=== PATIENT | female | born 1975 | race Caucasian/White ===

== ENCOUNTER → 2018-05-11 | Outpatient (CLI) | payer BC ==
[~2018-05-11] MED LIST: ASCA500 PO; CYAN500T PO; FOLI800T PO; LEVO25TA30 PO; LISI-1116 PO; MoRPHine SULFATE 2 MG/ML CARP ONE; OMEP20CA9 PO; OXYC-57 PO; POLY IRON PO; SINCALIDE INJ 1.5 MCG in SODIUM CHLORIDE 0.9% 100ML 100 ML IV ONE
--- NOTE | 2018-05-11 15:04 | DIAGNOSTIC IMAGING REPORT ---
HEPATOBILIARY HIDA IMAGING CLINICAL HISTORY: 42 years-old Female presenting with RUQ PAIN. TECHNIQUE: Immediately following the intravenous administration of 5.33 mCi Tc-99m Choletec, dynamic anterior abdominal imaging was performed. COMPARISON: None. FINDINGS: Uniform hepatic tracer accumulation is shown. Prompt intrahepatic biliary excretion is seen. Radiotracer rapidly transits into small bowel, consistent with the absence of a common bile duct obstruction. However, the gallbladder was not visualized after 60 minutes, therefore, morphine was administered. After 30 additional minutes of imaging, the gallbladder was visualized. As morphine was administered, the gallbladder ejection fraction could not be obtained. IMPRESSION: 1. Given the absence of visualization of the gallbladder after 60 minutes, findings suggest chronic cholecystitis. 2. No evidence for cystic duct obstruction. 3. Given the administration of morphine, gallbladder ejection fraction could not be obtained. Electronically signed by: Kevan Merchant M.D. 05/11/2018 3:02 PM Dictated Date/Time: 05/11/2018 2:58 PM
== END | disposition home or self-care (01) ==
LOC: C.NUCL 12:24
PROVIDERS: ATTEND Physician Assistant
DX: R10.11 Right upper quadrant pain (principal)

== ENCOUNTER 2023-09-28 05:27 | Observation (INO) ==
--- OUTSIDE RECORDS SUMMARY | 2023-09-28 05:34 | External Medical Summary | Summary of Care ---
Author Name Unknown Organization [facility] Address [address] [facility] [place] [address] Phone [phone] Care Team Providers Care Public Health Analyst Name Role Phone Paulina Ellis Primary Care Provider [phone] Reason for Visit * Reason Comments Outpatient Testing Encounter Details Date Type Department Care Team (Late st Contact Info) Description 09/07/2023 10:00 AM EST Laboratory Laboratory, [place] [address] [place] [address] [facility] [address] [place] [address] CKD (chronic kidney disease), stage II; Hypothyroidism, unspecified type Allergies Active Allergy Reactions Criticality Noted Date Comments Avocado 08/04/2012 Stomach cramps Sulfamethoxazole-Trimethopri m 07/06/2019 Really affected renal function last time she took it Mushroom Extract Complex 08/04/2012 Any mushroom: Stomach cramps Onion 08/04/2012 Stomach cramps when onions raw Tetracycline 09/18/2000 Stomach cramps documented as of this encounter (statuses as of 09/10/2023) Medications Medication Sig Dispensed Refills Start Date End Date Status SUCRALFATE 1 G PO TABS One pill as a slurry by mouth 30 minutes before meals and at bedtime 60 Tab 1 10/09/2014 Active Levocetirizine Dihydrochloride 5 MG Oral TabletIndications:PND (post-nasal drip) Take 1 Tab by mouth every evening. 30 Tab 0 11/15/2020 Active Additional Information Patient not taking.Reported on 09/10/2023 B-12 1000 MCG Oral Tablet Take one daily 0 08/01/2021 Active Additional Information Patient not taking.Reported on 02/10/2023 Ondansetron HCl 4 MG Oral TabletIndications:Str ess Take by mouth 1 Tablet every 6 hours as needed for Nausea. 30 Tablet 0 11/19/2021 Active Azelastine HCl 0.1 % Nasal SolutionIndications:D eviated septum Administer into nostril 1 Rangely in the morning AND 1 Rangely before bedtime. 30 mL 12 11/19/2021 Active Saccharomyces boulardii 250 MG Oral Capsule (Florastor)Indication s:Colitis Take by mouth 1 Capsule in the morning AND 1 Capsule before bedtime. 60 Capsule 0 12/02/2021 Active Additional Information Patient not taking.Reported on 02/10/2023 Scopolamine 1 MG/3DAYS Transdermal Patch 72 Hour (Transderm-Scop (1.5 MG))Indications:Sea sickness, initial encounter Place topically on the skin 1 Patch every 3 days . 4 hours before event. May replace every 3 days. . 4 Patch 1 02/17/2022 Active Additional Information Patient not taking.Reported on 02/10/2023 ProAir RespiClick 108 (90 Base) MCG/ACT Inhalation Aerosol Powder Breath Activated (Albuterol Sulfate)Indications:B ronchitis, complicated Inhale by mouth 2 Puffs every 4 hours as needed for Cough, Shortness of Breath or Wheezing. 3 Each 4 03/24/2022 Active Advair Diskus 250-50 MCG/ACT Inhalation Aerosol Powder Breath Activated (Fluticasone-Salmeter ol) USE 1 INHALATION EVERY 12 HOURS 60 Each 3 03/27/2022 Active Fluticasone Propionate 50 MCG/ACT Nasal Suspension (Flonase) Administer 2 Sprays into each nostril in the morning. 16 g 1 12/30/2022 Active Cetirizine HCl 10 MG Oral Tablet (ZyrTEC) Take 1 Tablet by mouth in the morning. 90 Tablet 3 12/30/2022 Active Lisinopril 2.5 MG Oral Tablet (Prinivil)Indications :ANCA-associated vasculitis (HCC) TAKE 1 TABLET DAILY 90 Tablet 3 02/16/2023 Active Levothyroxine Sodium 50 MCG Oral Tablet (Levoxyl)Indications: Hypothyroidism TAKE 1 TABLET DAILY AT LEAST 30 MINUTES BEFORE BREAKFAST AND OTHER MEDICATIONS 90 Tablet 1 04/01/2023 Active Sertraline HCl 100 MG Oral Tablet (Zoloft)Indications:Dejan wu depressive disorder, recurrent episode, mild (HCC) TAKE ONE AND ONE-HALF TABLETS DAILY WITH 25 MG FOR TOTAL OF 175 MG DAILY 135 Tablet 3 05/18/2023 Active Sertraline HCl 25 MG Oral Tablet (Zoloft)Indications:M ajor depressive disorder, recurrent episode, mild (HCC) TAKE 1 TABLET DAILY WITH 150 MG FOR TOTAL OF 175 MG 90 Tablet 3 05/18/2023 Active documented as of this encounter (statuses as of 09/10/2023) Active Problems Problem Noted Date Diagnosed Date Seasonal allergies 12/30/2022 JOVAN (obstructive sleep apnea) 04/28/2019 RLS (restless legs syndrome) 11/11/2018 Abnormal biliary HIDA scan 05/28/2018 Mild persistent asthma without complication 09/28 Globus sensation 10/09/2014 Malaise and fatigue 10/09/2014 Hypothyroidism 10/13/2013 Hepatic cyst 07/30/2012 CKD (chronic kidney disease), stage II 2 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 Major depressive disorder, recurrent episode, mi ld 09/15/2011 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 Dyspnea and respiratory abnormality 01/14/2010 Overview: ICD-10 update of inactive term Deviated nasal septum 01/14/2010 Hypertrophy of nasal turbinates 01/14/2010 Eosinophilic esophagitis 01/14/2010 documented as of this encounter (statuses as of 09/10/2023) Resolved Problems Problem Noted Date Diagnosed Date Resolved Date Otalgia 01/20/2017 03/18/2017 Sinus congestion 01/20/2017 03/18/2017 Cough 10/13/2016 03/18/2017 Mixed rhinitis 10/13/2016 03/18/2017 Chronic rhinitis 10/09/2014 10/13/2016 UTI (urinary tract infection) 06/04/2012 03/18/2017 Anemia of chronic renal failure 12/24/2011 04/17/2015 Dysfunction of eustachian tube 01/14/2010 03/18/2017 Hypertrophy of adenoids 01/14/201002/27 Other chronic sinusitis 01/14/201002/27 Allergic rhinitis 01/14/2010 03/18/2017 documented as of this encounter (statuses as of 09/10/2023) Immunizations Name Administration Dates Next Due COVID-19 mRNA, LNP-s, No Pre serve, 2-Dose Series (Pfizer) 11/03/2020 PPD 06/11/2015,10/08/2011 Pneumococcal Conjugate Vacci ne, 20-valent ([id number]) 06/25/2023 Pneumococcal Polysaccharide PPV23 (Pneumovax) 11/02/2019 Seasonal Influenza, PF, 6 M & above, IM , (FluLaval or Fluzone) 06/25/2023,07/10/2020,06/04/2019,07/30,08/03/2017 Seasonal Influenza, Quadriva lent, No Preserve, IM 06/17/2016 06/17/2017 Seasonal Influenza, Split, I IV3, With Preserve, Inj 06/11/2015,09/15/2012 TDAP (age 10 and older)(Boostrix) 01/25/2014 documented as of this encounter Social History Tobacco Use Types Packs/Day Years Used Date Smoking Tobacco: Never Smokeless Tobacco: Never Comments:no passive smoke Alcohol Use Standard Drinks/Week Comments Yes 0 (1 standard drink = 0.6 oz pur e alcohol) rare PHQ-2 Answer Date Recorded PHQ Adult Total Score 2 11/19/2021 Hunger Vital Sign Answer Date Recorded Worried About Running Out of Food in the Last Ye ar Never true 06/04/2019 Ran Out of Food in the Last Year Never true 06/04/2019 Sex and Gender Information Value Date Recorded Sex Assigned at Female 10/25/2019 10:33 AM EST Gender Identity Female 10/25/2019 10:33 AM EST Sexual Orientation Straight 10/25/2019 10 :33 AM EST Job Start Date Occupation Industry Not on file Not on file Not on file documented as of this encounter Miscellaneous Notes * Result Encounter Note - Hussein Crowder MD - 09/08/2023 9:01 AM EST GFR slightly lower than last time again. Would need to do more detailed tests for eval given prirorh/o ANCA vasculitis. Renal panel, CBC, UA, prot/creat, ANCA panel, c3 and c4. Do in about 3 weeks. documented in this encounter Plan of Treatment Upcoming Encounters Date Type Department Care Team (Late st Contact Info) Description 12/10/2023 3:40 PM EDT Office Visit [facility] [address] [place] [facility] [place] [id number] Lowell Christine MD [address] [place] [address] 02/17/2024 2:40 PM EDT Office Visit Nephrology, [facility] [address] [facility] [place] [address] Hussein Crowder MD [address] [place] [address] Pending Results Name Type Priority Associated Diagnoses Date /Time TSH WITH FREE T4 IF INDICATED Lab Routine Hypothyroidism, unspecified type 09/07/2023 10:03 AM EST Scheduled Procedures Name Priority Associated Diagnoses Date/Ti me COLONOSCOPY FLEXIBLE PROXIMA L DIAGNOSTIC Recall History of colonic polyps Health Maintenance Due Date Last Done Comments Hepatitis B (1 of 3 - 3-dose series) 1975 HIV Screening 1990 Hepatitis C Screening 1993 HPV/Co-Test 2005 Depression Screening 11/19/2022 11/19/2021 COVID-19 Vaccine ( season) 2023 08/28/2021, 11/24/2020, 11/03/2020 DTaP,Tdap,and Td Vaccines (2 - Td or Tdap) 01/26/2024 01/25/2014 TSH 02/10/2024 02/09/2023, 010 12/2022, 05/27/2021, Additional history exists Mammogram 02/12/2024 02/11/2023, 10/30, 04/05/2020, Additional history exists Cervical Cancer Screening 02/17/2025 Pap Smear 02/17/2025 02/17/2022, 08/0 04/2018, 05/05/2018, Additional history exists Diabetes Screening 09/07/2026 09/07/2023, 1 10/19/2022, 02/09/2023, Additional history exists COLONOSCOPY-EVERY 5 YRS AGES 18-100 12/24/2026 12/24/2021, 12/24/2021 Lipid Panel 02/10/2028 02/09/2023, 01/27, 10/06/2012, Additional history exists Colonoscopy Discontinued 12/24/2021, 12/24/2021 Colorectal Cancer Screening Discontinued Influenza Vaccine (FLU shot) Completed 06/25/2023, 07/10/2020, 06/04/2019, Additional history exists Pneumococcal Vaccine: Pediatrics (0 to 5 Years) and At-Risk Patients (6 to 64 Years) Completed 06/25/2023, 11/02/2019 Cologuard Discontinued Fecal Occult Blood Test Discontinued GARDASIL-HPV IMMUNIZATION SERIES Aged Out No longer eligible based on patient's age to complete this topic MENINGOCOCCAL (MENACTRA/MENVEO) Aged Out No longer eligible based on patient's age to complete this topic Sigmoidoscopy Discontinued documented as of this encounter Medical Devices Not on filedocumented as of this encounter Procedures Procedure Name Priority Date/Time Associated Diagnosis Comments RENAL FUNCTION PANEL Routine 09/07/2023 10:03 AM EST CKD (chronic kidney disease), stage II URINALYSIS WITH MICROSCOPIC EXAM Routine 09/07/2023 10:03 AM EST CKD (chronic kidney disease), stage II CBC Routine 09/07/2023 10:03 AM EST CKD (chronic kidney disease), stage II documented in this encounter Results * (ABNORMAL) URINALYSIS WITH MICROSCOPIC EXAM (09/07/2023 10:03 AM EST) Color, Urine Colorless Colorless, Light Yellow, Yellow, Dark Yellow 09/07/2023 5:15 PM EST [facility] Clarity, Urine Clear Clear 09/07/2023 5:15 PM EST [facility] Glucose, Urine Negative Negative mg/dL 09/07/2023 5:15 PM EST [facility] Bilirubin, Urine Negative Negative 09/07/2023 5:15 PM EST [facility] Ketone, Urine Negative Negative mg/dL 09/07/2023 5:15 PM EST [facility] Specific [place], Urine 1.014 1.003 - 1.030 09/07/2023 5:15 PM EST [facility] Blood, Urine Large(A) Negative 09/07/2023 5:15 PM EST [facility] pH, Urine 7.5 5.0 - 7.5 Units 09/07/2023 5:15 PM EST [facility] Protein, Urine 30(A) Negative mg/dL 09/07/2023 5:15 PM EST [facility] Urobilinogen, Urine Normal Normal mg/dL 09/07/2023 5:15 PM EST [facility] Nitrite, Urine Negative Negative 09/07/2023 5:15 PM EST [facility] Esterase, Urine Negative Negative 09/07/2023 5:15 PM EST [facility] RBC, Urine 30-49(A) 0 - 2 /HPF 09/07/2023 5:15 PM EST [facility] WBC, Urine 3-5(A) 0 - 2 /HPF 09/07/2023 5:15 PM EST [facility] Bacteria, Urine 0-25 0 - 25 /HPF 09/07/2023 5:15 PM EST LAB[facility]ATORY [facility] Urine Non-blood Collection / Unknown 09/07/2023 10:03 AM EST 09/07/2023 10:03 AM EST Hussein Crowder MD LAB URINE ORDERABLES Performing Organization Address City/State/[facility] Co de Phone Number LABORATORY [facility] [address] [place] [address] * (ABNORMAL) RENAL FUNCTION PANEL (09/07/2023 10:03 AM EST) BUN 19 6 - 20 mg/dL 09/07/2023 4:24 PM EST [facility] Creatinine 1.4(H) 0.5 - 1.0 mg/dL 09/07/2023 4:24 PM EST [facility] Estimated Glomerular Filtration Rate 48(L) >=60 mL/min 09/07/2023 4:24 PM EST [facility] Comment:eGFR is calculated b ased on the CKD-EPI 2020 equation Sodium 141 135 - 146 mmol/L 09/07/2023 4:24 PM EST [facility] Potassium 4.4 3.5 - 5.1 mmol/L 09/07/2023 4:24 PM EST [facility] Chloride 103 98 - 107 mmol/L 09/07/2023 4:24 PM EST [facility] CO2 29 22 - 32 mmol/L 09/07/2023 4:24 PM EST [facility] Anion Gap 9 7 - 15 mmol/L 09/07/2023 4:24 PM EST [facility] Glucose 98 70 - 120 mg/dL 09/07/2023 4:24 PM EST [facility] Calcium 9.3 8.4 - 10.2 mg/dL 09/07/2023 4:24 PM EST [facility] Albumin 4.2 3.8 - 5.0 g/dL 09/07/2023 4:24 PM EST [facility] Phosphorus 3.6 2.5 - 4.8 mg/dL 09/07/2023 4:24 PM EST [facility] Blood Venous blood specimen / Unknown Venipuncture / Unknown 09/07/2023 10:03 AM EST 09/07/2023 10:03 AM EST Hussein Crowder MD LAB BLOOD ORDERABLES [facility] [address] [place] [address] * CBC (09/07/2023 10:03 AM EST) WBC 7.88 4.00 - 10.80 K/uL 09/07/2023 4:04 PM EST [facility] RBC 4.45 3.85 - 5.15 M/uL 09/07/2023 4:04 PM EST [facility] HGB 12.7 12.0 - 15.3 g/dL 09/07/2023 4:04 PM EST [facility] HCT 39.5 36.0 - 45.2 % 09/07/2023 4:04 PM EST [facility] MCV 88.8 81.5 - 97.5 fL 09/07/2023 4:04 PM EST [facility] MCH 28.5 27.0 - 34.0 pg 09/07/2023 4:04 PM EST [facility] MCHC 32.2 32.0 - 36.0 g/dL 09/07/2023 4:04 PM EST [facility] RDW 13.2 11.5 - 15.5 % 09/07/2023 4:04 PM EST [facility] PLT 287 140 - 400 K/uL 09/07/2023 4:04 PM EST [facility] MPV 11.2 6.6 - 11.1 fL 09/07/2023 4:04 PM EST [facility] nRBCs 0 <=0 /100 WBCs 09/07/2023 4:04 PM EST [facility] Blood Venous blood specimen / Unknown Venipuncture / Unknown 09/07/2023 10:03 AM EST 09/07/2023 10:03 AM EST Hussein Crowder MD LAB BLOOD ORDERABLES Performing Organization Address City/State/[facility] Co de Phone Number [facility] [address] [place] [address] documented in this encounter Visit Diagnoses Diagnosis CKD (chronic kidney disease), stage II Chronic kidney disease, Stage II (mild) Hypothyroidism, unspecified type documented in this encounter Advance Directives Latest Code Status on File Code Status Date Activated Date Inactivated Comments Full Code 10/27/2011 6:02 PM 10/31/2011 5:17 PM This o rder reflects the patients wishes and were consensually agreed upon. Question Answer Comments Discussion of Advance Directives occurred with: Patient Does the patient have a Living Will? No Does the patient have Health Care Power of Incising Machine Operator? No Care Teams Public Health Analyst Relationship Specialty Start Date End Date Paulina Ellis DO [address] [place] [address] PCP - General Family Medicine 11/17/18 documented as of this encounter
--- OUTSIDE RECORDS SUMMARY | 2023-09-28 05:34 | External Medical Summary ---
Author Name Unknown Address Unknown Organization [id number]:[facility] [place] [address] [place] [address] Laboratory Report Ordering Provider Test Date Status SEVEN YBARRA 09/07/2023 10:03:47 Final Observation Date Value Abnormality Reference (Units ) Status TSH 09/07/2023 10:03:47 10.70 Above high normal 0. 27-4.20 (uIU/mL) Final Performing Location [facility] [place] [address] [place] [address]
--- OUTSIDE RECORDS SUMMARY | 2023-09-28 05:34 | External Medical Summary ---
Author Name Unknown Address Unknown Organization [id number][facility] [place] [address] [facility] [place] [address] Laboratory Report Ordering Provider Test Date Status YOLANDA BARTON 09/07/2023 10:03:47 Final Observation Date Value Abnormality Reference (Units ) Status Color of Urine by Auto 09/07/2023 10:03:47 Colorless Colorless, Light Yellow, Yellow, Dark Yellow Final Clarity, Urine 09/07/2023 10:03:47 Clear Clear Final Glucose [Mass/volume] in Urine by Automated test strip 09/07/2023 10:03:47 Negative Negative (mg/dL) Final Bilirubin.total [Presence] in Urine by Automated test strip 09/07/2023 10:03:47 Negative Negative Final Ketones [Mass/volume] in Urine by Automated test strip 09/07/2023 10:03:47 Negative Negative (mg/dL) Final Specific gravity, Urine 09/07/2023 10:03:47 1.014 1.003-1.030 Final Hemoglobin [Presence] in Urine by Automated test strip 09/07/2023 10:03:47 Large Abnormal Negative Final pH, Urine 09/07/2023 10:03:47 7.5 5.0-7.5 (Units) Final Protein [Mass/volume] in Urine by Automated test strip 09/07/2023 10:03:47 30 Abnormal Negative (mg/dL) Final Urobilinogen [Mass/volume] in Urine by Automated test strip 09/07/2023 10:03:47 Normal Normal (mg/dL) Final Nitrite [Presence] in Urine by Automated test strip 09/07/2023 10:03:47 Negative Negative Final Leukocyte esterase [Presence] in Urine by Automated test strip 09/07/2023 10:03:47 Negative Negative Final RBC, Urine 09/07/2023 10:03:47 30-49 Abnormal 0-2 (/HPF) Final WBC, Urine 09/07/2023 10:03:47 3-5 Abnormal 0-2 (/HPF) Final Bacteria [#/area] in Urine sediment by Microscopy high power field 09/07/2023 10:03:47 0-25 0-25 (/HPF) Final Performing Location [facility] [place] [facility] [address] [facility] [address]
--- OUTSIDE RECORDS SUMMARY | 2023-09-28 05:34 | External Medical Summary | Summary of Care ---
Author Name Unknown Organization [facility] Address [address] [facility] [place] [address] Phone [phone] Care Team Providers Care Surgical Scrub Technologist Name Role Phone Paulina Ellis Primary Care Provider Encounter Details Date Type Department Care Team (Late st Contact Info) Description 09/08/2023 Orders Only Nephrology, [facility] [address] [place] [address] Hussein Crowder MD [address] [place] [address] ANCA-associated vasculitis (HCC)*; CKD (chronic kidney disease), stage II Allergies Active Allergy Reactions Criticality Noted Date Comments Avocado 08/04/2012 Stomach cramps Sulfamethoxazole-Trimethopri m 07/06/2019 Really affected renal function last time she took it Mushroom Extract Complex 08/04/2012 Any mushroom: Stomach cramps Onion 08/04/2012 Stomach cramps when onions raw Tetracycline 09/18/2000 Stomach cramps documented as of this encounter (statuses as of 09/08/2023) Medications Medication Sig Dispensed Refills Start Date End Date Status SUCRALFATE 1 G PO TABS One pill as a slurry by mouth 30 minutes before meals and at bedtime 60 Tab 1 10/09/2014 Active Levocetirizine Dihydrochloride 5 MG Oral TabletIndications:PND (post-nasal drip) Take 1 Tab by mouth every evening. 30 Tab 0 11/15/2020 Active B-12 1000 MCG Oral Tablet Take one daily 0 08/01/2021 Active Additional Information Patient not taking.Reported on 02/10/2023 Ondansetron HCl 4 MG Oral TabletIndications:Str ess Take by mouth 1 Tablet every 6 hours as needed for Nausea. 30 Tablet 0 11/19/2021 Active Azelastine HCl 0.1 % Nasal SolutionIndications:D eviated septum Administer into nostril 1 Volcano in the morning AND 1 Volcano before bedtime. 30 mL 12 11/19/2021 Active [...] Sertraline HCl 100 MG Oral Tablet (Zoloft)Indications:Dejan hernandesor depressive disorder, recurrent episode, mild (HCC) TAKE ONE AND ONE-HALF TABLETS DAILY WITH 25 MG FOR TOTAL OF 175 MG DAILY 135 Tablet 3 05/18/2023 Active Sertraline HCl 25 MG Oral Tablet (Zoloft)Indications:Dejan ajor depressive disorder, recurrent episode, mild (HCC) TAKE 1 TABLET DAILY WITH 150 MG FOR TOTAL OF 175 MG 90 Tablet 3 05/18/2023 Active documented as of this encounter (statuses as of 09/08/2023) Active Problems Problem Noted Date Diagnosed Date [...] as of this encounter (statuses as of 09/08/2023) Resolved Problems Problem Noted Date Diagnosed Date [...] as of this encounter (statuses as of 09/08/2023) Immunizations Name Administration Dates Next Due COVID-19 mRNA, LNP-s, No Pre serve, 2-Dose Series (Pfizer) 11/03/2020 PPD 06/11/2015,10/08/2011 Pneumococcal Conjugate Vacci ne, 20-valent ([id number]) 06/25/2023 Pneumococcal Polysaccharide PPV23 (Pneumovax) 11/02/2019 Seasonal [...] on file documented as of this encounter Plan of Treatment Upcoming Encounters Date Type Department Care Team (Late st Contact Info) Description 02/17/2024 2:40 PM EDT Office Visit [facility] [address] [place] [address] Hussein Crowder MD [address] [place] [address] Scheduled Orders Name Type Priority Associated Diagnoses Orde r Schedule RENAL FUNCTION PANEL Lab Routine ANCA-associated vasculitis (HCC) CKD (chronic kidney disease), stage II Expected: 09/08/2023 (Approximate), Expires: 09/08/2024 CBC Lab Routine ANCA-associated vasculitis (HCC) CKD (chronic kidney disease), stage II Expected: 09/08/2023 (Approximate), Expires: 09/08/2024 URINALYSIS WITH MICROSCOPIC EXAM Lab Routine ANCA-associated vasculitis (HCC) CKD (chronic kidney disease), stage II Expected: 09/08/2023 (Approximate), Expires: 09/08/2024 PROTEIN/ CREATININE RATIO, URINE Lab Routine ANCA-associated vasculitis (HCC) CKD (chronic kidney disease), stage II Expected: 09/08/2023 (Approximate), Expires: 09/08/2024 ANCA REFLEX PANEL Lab Routine ANCA-associated vasculitis (HCC) CKD (chronic kidney disease), stage II Expected: 09/08/2023 (Approximate), Expires: 09/08/2024 COMPLEMENT C3 Lab Routine ANCA-associated vasculitis (HCC) CKD (chronic kidney disease), stage II Expected: 09/08/2023 (Approximate), Expires: 09/08/2024 COMPLEMENT C4 Lab Routine ANCA-associated vasculitis (HCC) CKD (chronic kidney disease), stage II Expected: 09/08/2023 (Approximate), Expires: 09/08/2024 Scheduled Procedures Name Priority Associated Diagnoses Date/Ti [...] or Tdap) 01/26/2024 01/25/2014 TSH 02/10/2024 02/09/2023, 01/0 12/2022, 05/27/2021, Additional history exists Mammogram 02/12/2024 02/11/2023, 10/30, 04/05/2020, Additional history exists Cervical Cancer Screening 02/17/2025 Pap Smear 02/17/2025 02/17/2022, 04/2018, 05/05/2018, Additional history exists Diabetes Screening [...] Not on filedocumented as of this encounter Visit Diagnoses Diagnosis ANCA-associated vasculitis (HCC)- Primary Other specified disorders of arteries and arterioles CKD (chronic kidney disease), stage II Chronic kidney disease, Stage II (mild) documented in this encounter Advance Directives Latest [...] the patient have Health Care Power of Student Development Coordinator? No Care Teams Surgical Scrub Technologist Relationship Specialty Start Date End Date Paulina Ellis DO [address] [place] [address] PCP - General Family Medicine 11/17/18 documented as of this encounter
--- OUTSIDE RECORDS SUMMARY | 2023-09-28 05:34 | External Medical Summary ---
Author Name Unknown Address Unknown Organization [id number]:[facility]ORY [facility] [place] [address] [address] Laboratory Report Ordering Provider Test Date Status SEVEN YBARRA 09/07/2023 10:03:47 Final Observation Date Value Abnormality Reference (Units ) Status T4, Free 09/07/2023 10:03:47 0.9 0.9-1.7 (n g/dL) Final Performing Location [facility] - [address] [place] [address]
--- OUTSIDE RECORDS SUMMARY | 2023-09-28 05:34 | External Medical Summary ---
Author Name Unknown Address Unknown Organization [id number]:LABORATORY [facility] [place] - [address] [place] [address] Laboratory Report Ordering Provider Test Date Status YOLANDA BARTON 08/19/2023 08:51:38 Final Observation Date Value Abnormality Reference (Units ) Status BUN 08/19/2023 08:51:38 18 6-20 (mg/dL) Final Creatinine 08/19/2023 08:51:38 1.3 Above high normal 0.5-1.0 (mg/dL) Final Glomerular filtration rate/1.73 sq M.predicted [Volume Rate/Area] in Serum, Plasma or Blood by Creatinine-based formula (CKD-EPI) 08/19/2023 08:51:38 52 Below low normal >=60 (mL/min) Final eGFR is calculated based on the CKD-EPI 2020 equation SODIUM 08/19/2023 08:51:38 139 135-146 (m mol/L) Final Potassium 08/19/2023 08:51:38 4.2 3.5-5.1 (m mol/L) Final Cl 08/19/2023 08:51:38 101 98-107 (mm ol/L) Final CO2 08/19/2023 08:51:38 30 22-32 (mmo l/L) Final Anion gap 08/19/2023 08:51:38 8 7-15 (mmol /L) Final Glucose 08/19/2023 08:51:38 100 70-120 (mg /dL) Final Calcium 08/19/2023 08:51:38 9.2 8.4-10.2 ( mg/dL) Final Performing Location LABORATORY [facility] [place] - [address] [place] [address]
--- OUTSIDE RECORDS SUMMARY | 2023-09-28 05:34 | External Medical Summary ---
Author Name Unknown Address Unknown Organization [id number]:[facility] [place] [address] [place] [address] Laboratory Report Ordering Provider Test Date Status YOLANDA BARTON 08/19/2023 08:51:38 Final Observation Date Value Abnormality Reference (Units ) Status Color of Urine by Auto 08/19/2023 08:51:38 Colorless Colorless, Light Yellow, Yellow, Dark Yellow Final Clarity, Urine 08/19/2023 08:51:38 Clear Clear Final Glucose [Mass/volume] in Urine by Automated test strip 08/19/2023 08:51:38 Negative Negative (mg/dL) Final Bilirubin.total [Presence] in Urine by Automated test strip 08/19/2023 08:51:38 Negative Negative Final Ketones [Mass/volume] in Urine by Automated test strip 08/19/2023 08:51:38 Negative Negative (mg/dL) Final Specific gravity, Urine 08/19/2023 08:51:38 1.014 1.003-1.030 Final Hemoglobin [Presence] in Urine by Automated test strip 08/19/2023 08:51:38 Large Abnormal Negative Final pH, Urine 08/19/2023 08:51:38 6.5 5.0-7.5 (Units) Final Protein [Mass/volume] in Urine by Automated test strip 08/19/2023 08:51:38 30 Abnormal Negative (mg/dL) Final Urobilinogen [Mass/volume] in Urine by Automated test strip 08/19/2023 08:51:38 Normal Normal (mg/dL) Final Nitrite [Presence] in Urine by Automated test strip 08/19/2023 08:51:38 Negative Negative Final Leukocyte esterase [Presence] in Urine by Automated test strip 08/19/2023 08:51:38 Trace Abnormal Negative Final RBC, Urine 08/19/2023 08:51:38 50+ Abnormal 0-2 (/HPF) Final WBC, Urine 08/19/2023 08:51:38 6-9 Abnormal 0-2 (/HPF) Final Bacteria [#/area] in Urine sediment by Microscopy high power field 08/19/2023 08:51:38 26-50 Abnormal 0-25 (/HPF) Final Performing Location [facility] [place] [address] [facility] [address]
--- OUTSIDE RECORDS SUMMARY | 2023-09-28 05:34 | External Medical Summary ---
Author Name Unknown Address Unknown Organization K01:LABORATORY [facility] [place] - Formerly named [facility] [address] [facility] [address] Laboratory Report Ordering Provider Test Date Status YOLANDA BARTON 09/07/2023 10:03:47 Final Observation Date Value Abnormality Reference (Units ) Status WBC, Total 09/07/2023 10:03:47 7.88 4.00-10.80 (K/uL) Final RBC 09/07/2023 10:03:47 4.45 3.85-5.15 (M/uL) Final Hemoglobin 09/07/2023 10:03:47 12.7 12.0-15.3 (g/dL) Final HCT 09/07/2023 10:03:47 39.5 36.0-45.2 (%) Final MCV 09/07/2023 10:03:47 88.8 81.5-97.5 (fL) Final MCH 09/07/2023 10:03:47 28.5 27.0-34.0 (pg) Final MCHC 09/07/2023 10:03:47 32.2 32.0-36.0 (g/dL) Final RDW 09/07/2023 10:03:47 13.2 11.5-15.5 (%) Final Platelets 09/07/2023 10:03:47 287 140-400 (K/uL) Final MPV 09/07/2023 10:03:47 11.2 6.6-11.1 (fL) Final Nucleated erythrocytes/100 leukocytes [Ratio] in Blood by Automated count 09/07/2023 10:03:47 0 <=0 (/100 WBCs) Final Performing Location LABORATORY [facility] [place] - [address] [place] [address]
--- OUTSIDE RECORDS SUMMARY | 2023-09-28 05:34 | External Medical Summary | Summary of Care ---
Author Name Unknown Organization [facility] Address [address] [facility] [place] [address] Phone [phone] Care Team Providers Care Diversified Crops I Farmworker Name Role Phone Paulina Ellis Primary Care Provider [phone] Reason for Visit * Reason Onset Date Comments Test Results 09/10/2023 Encounter Details Date Type Department Care Team (Late st Contact Info) Description 09/10/2023 Telephone [facility] [address] [place] [address] Lowell Christine MD [address] [place] [address] Test Results Allergies Active Allergy Reactions Criticality Noted Date Comments Avocado 08/04/2012 Stomach cramps Sulfamethoxazole-Trimethopri m 07/06/2019 Really affected renal function last time she took it Mushroom Extract Complex 08/04/2012 Any mushroom: Stomach cramps Onion 08/04/2012 Stomach cramps when onions raw Tetracycline 09/18/2000 Stomach cramps documented as of this encounter (statuses as of 09/14/2023) Medications Medication Sig Dispensed Refills Start Date End Date Status SUCRALFATE 1 G PO TABS One pill as a slurry by mouth 30 minutes before meals and at bedtime 60 Tab 1 10/09/2014 Active Levocetirizine Dihydrochloride 5 MG Oral TabletIndications:PN D (post-nasal drip) Take 1 Tab by mouth every evening. 30 Tab 0 11/15/2020 Active Additional Information Patient not taking.Reported on 09/10/2023 B-12 1000 MCG Oral Tablet Take one daily 0 08/01/2021 Active Additional Information Patient not taking.Reported on 02/10/2023 Ondansetron HCl 4 MG Oral TabletIndications:St ress Take by mouth 1 Tablet every 6 hours as needed for Nausea. 30 Tablet 0 11/19/2021 Active Azelastine HCl 0.1 % Nasal SolutionIndications: Deviated septum Administer into nostril 1 Lynn in the morning AND 1 Lynn before bedtime. 30 mL 12 11/19/2021 Active Saccharomyces boulardii 250 MG Oral Capsule (Florastor)Indicatio ns:Colitis Take by mouth 1 Capsule in the [...] MCG/ACT Inhalation Aerosol Powder Breath Activated (Albuterol Sulfate)Indications: Bronchitis, complicated Inhale by mouth 2 Puffs every 4 hours as needed for Cough, Shortness of Breath or Wheezing. 3 Each 4 03/24/2022 Active Advair Diskus 250-50 MCG/ACT Inhalation Aerosol Powder Breath Activated (Fluticasone-Salmete rol) USE 1 INHALATION EVERY 12 HOURS 60 Each 3 03/27/2022 Active Fluticasone Propionate 50 MCG/ACT Nasal Suspension (Flonase) Administer 2 Sprays into each nostril in the morning. 16 g 1 12/30/2022 Active Cetirizine HCl 10 MG Oral Tablet (ZyrTEC) Take 1 Tablet by mouth in the morning. 90 Tablet 3 12/30/2022 Active Lisinopril 2.5 MG Oral Tablet (Prinivil)Indication s:ANCA-associated vasculitis (HCC) TAKE 1 TABLET DAILY 90 Tablet 3 02/16/2023 Active Sertraline HCl 100 MG Oral Tablet (Zoloft)Indications: Major depressive disorder, recurrent episode, mild (HCC) TAKE ONE AND ONE-HALF TABLETS DAILY WITH 25 MG FOR TOTAL OF 175 MG DAILY 135 Tablet 3 05/18/2023 Active Sertraline HCl 25 MG Oral Tablet (Zoloft)Indications: Major depressive disorder, recurrent episode, mild (HCC) TAKE 1 TABLET DAILY WITH 150 MG FOR TOTAL OF 175 MG 90 Tablet 3 05/18/2023 Active Levothyroxine Sodium 75 MCG Oral Tablet (Levoxyl) Take 1 Tablet by mouth in the morning. (at least 30 min prior to breakfast or other meds). 90 Tablet 3 09/14/2023 Active Levothyroxine Sodium 50 MCG Oral Tablet (Levoxyl)Indications :Hypothyroidism TAKE 1 TABLET DAILY AT LEAST 30 MINUTES BEFORE BREAKFAST AND OTHER MEDICATIONS 90 Tablet 1 04/01/2023 09/10/20 23 Discontinu ed(Medicat ion/Dose Changed) Levothyroxine Sodium 75 MCG Oral Tablet (Levoxyl) Take 1 Tablet by mouth in the morning. (at least 30 min prior to breakfast or other meds). 90 Tablet 3 09/14/2023 09/14/20 23 Discontinu ed(Refill) documented as of this encounter (statuses as of 09/14/2023) Active Problems Problem Noted Date Diagnosed Date [...] as of this encounter (statuses as of 09/14/2023) Resolved Problems Problem Noted Date Diagnosed Date [...] as of this encounter (statuses as of 09/14/2023) Immunizations Name Administration Dates Next Due COVID-19 mRNA, LNP-s, No Pre serve, 2-Dose Series (Leads Direct) 11/03/2020 PPD 06/11/2015,10/08/2011 Pneumococcal Conjugate Vacci ne, 20-valent ([id number]) 06/25/2023 Pneumococcal Polysaccharide PPV23 (Pneumovax) 11/02/2019 Seasonal [...] as of this encounter Miscellaneous Notes * Telephone Encounter - Montse Olvera LPN - 09/14/2023 3:46 PM EST Patient aware and verbalized understanding Pt is requesting med to be sent to [facility]. Pended * Telephone Encounter - Lowell Christine MD - 09/14/2023 1:32 PM EST Never heard back - can notify that higher dose sent to [facility]. * Telephone Encounter - Dilia Sargent LPN - 09/11/2023 10:02 AM EST Left detailed message for patient. If she calls back please find out what pharmacy she would like new Rx sent to * Telephone Encounter - Lowell Christine MD - 09/10/2023 8:30 PM EST Please call pt to notify that her TSH returned elevated. She should increase her dose of thyroid replacement to 75 mcg daily. She can take 1 and 1/2 of the 50 mcg to use them up. What pharmacy does she want for the levothyroxine? Suggest repeat TSH after 6-8 weeks. documented in this encounter Plan of Treatment Upcoming Encounters Date Type Department Care Team (Late st Contact Info) Description 12/10/2023 3:40 PM EDT Office Visit [address] [address] Lowell Christine MD [address] [place] [address] 02/17/2024 2:40 PM EDT Office Visit Nephrology, Deniz Perez [address] [place] [address] Hussein Crowder MD [address] [facility] [place] [address] Scheduled Orders Name Type Priority Associated Diagnoses Orde r Schedule TSH WITH FREE T4 IF INDICATED Lab Routine Hypothyroidism, unspecified type Expected: 09/14/2023 (Approximate), Expires: 09/09/2024 Scheduled Procedures Name Priority Associated Diagnoses Date/Ti [...] (2 - Td or Tdap) 01/26/2024 01/25/2014 Mammogram 02/12/2024 02/11/2023, 10/30, 04/05/2020, Additional history [...] as of this encounter Visit Diagnoses Diagnosis Hypothyroidism, unspecified type- Primary documented in this encounter Advance Directives Latest [...] the patient have Health Care Power of Signalling And Communications Engineer? No Care Teams Diversified Crops I Farmworker Relationship Specialty Start Date End Date Paulina Ellis DO [address] [place] [address] PCP - General Family Medicine 11/17/18 documented as of this encounter
--- OUTSIDE RECORDS SUMMARY | 2023-09-28 05:34 | External Medical Summary | Summary of Care ---
Author Name Unknown Organization [facility] Address [address] [facility] [place] [address] Phone [phone] Care Team Providers Care Em Physician Name Role Phone Paulina Ellis DO Primary Care Provider Encounter Details Date Type Department Care Team (Late st Contact Info) Description 08/19/2023 Telephone [facility] [address] [facility] [place] [address] Paulina Ellis DO [address] [place] [address] Allergies Active Allergy Reactions Criticality Noted Date Comments Avocado 08/04/2012 Stomach cramps Sulfamethoxazole-Trimethopri m 07/06/2019 Really affected renal function last time she took it Mushroom Extract Complex 08/04/2012 Any mushroom: Stomach cramps Onion 08/04/2012 Stomach cramps when onions raw Tetracycline 09/18/2000 Stomach cramps documented as of this encounter (statuses as of 08/26/2023) Medications Medication Sig Dispensed Refills Start Date [...] SolutionIndications:D eviated septum Administer into nostril 1 [place] in the morning AND 1 [place] before bedtime. 30 mL 12 11/19/2021 Active [...] Sertraline HCl 100 MG Oral Tablet (Zoloft)Indications:Dejan ajor depressive disorder, [...] as of this encounter (statuses as of 08/26/2023) Active Problems Problem Noted Date Diagnosed Date [...] as of this encounter (statuses as of 08/26/2023) Resolved Problems Problem Noted Date Diagnosed Date [...] as of this encounter (statuses as of 08/26/2023) Immunizations Name Administration Dates Next Due COVID-19 mRNA, LNP-s, No Pre serve, 2-Dose Series (Pfizer) 11/03/2020 PPD 06/11/2015,10/08/2011 Pneumococcal Conjugate Vacci ne, 20-valent ([id number]) 06/25/2023 Pneumococcal Polysaccharide PPV23 (Pneumovax) 11/02/2019 SEASONAL INFLUENZA, PF, 6 M & Above, IM , (FLULAVAL or FLUZONE) 06/25/2023,07/10/2020,06/04/2019,07/30,08/03/2017 Seasonal Influenza, Quadriva lent, No Preserve, [...] encounter Miscellaneous Notes * Telephone Encounter - Anna Carbone CCMA - 08/21/2023 1:50 PM EST Pt states that she didn't start taking chol level yet. She states that she is going to be doing another lab nephrology she will call back in mid August to schedule * Telephone Encounter - Paulina Ellis DO - 08/21/2023 1:44 PM EST I have never seen pt, . They were high in january Did she start taking a chol pill? I would suggest a follow-up appt * Telephone Encounter - Chiquita Albarran OSA - 08/19/2023 8:39 AM EST 08/19/23 Pt stopped by the hotel front desk clerk and was inquiring about lab work for Cholesterol levels? The last lab was drawn in January of 2023. documented in this encounter Plan of Treatment Upcoming Encounters Date Type Department Care Team (Late st Contact Info) Description 02/17/2024 2:40 PM EDT Office Visit [facility] [address] [facility] [place], [place] [address] Hussein Crowder MD [address] [facility] [place], [place] [address] Scheduled Procedures Name Priority Associated Diagnoses Date/Ti [...] 04/2018, 05/05/2018, Additional history exists Diabetes Screening 08/19/2026 08/19/2023, 0 02/09/2023, 10/01/2022, Additional history exists COLONOSCOPY-EVERY 5 YRS AGES [...] Not on filedocumented as of this encounter Advance Directives Latest Code Status on File Code Status Date Activated Date Inactivated Comments Full Code 10/27/2011 6:02 PM 10/31/2011 5:17 PM This o rder reflects the patients wishes and were consensually agreed upon. Question Answer Comments Discussion of Advance Directives occurred with: Patient Does the patient have a Living Will? No Does the patient have Health Care Power of Broach Setter? No Care Teams Em Physician Relationship Specialty Start Date End Date [facility]ina Ellis [facility] [address] [facility] [place] [address] PCP - General Family Medicine 11/17/18 documented as of this encounter
--- OUTSIDE RECORDS SUMMARY | 2023-09-28 05:34 | External Medical Summary | Summary of Care ---
Author Name Unknown Organization [facility] Address [address] [facility] [place] [address] Phone [phone] Care Team Providers Care Optometrist President/Practice Owner Name Role Phone Caleb Paulina Lucas Primary Care Provider Reason for Visit * Reason Comments Outpatient Testing Encounter Details Date Type Department Care Team (Late st Contact Info) Description 08/19/2023 8:40 AM EST Laboratory Laboratory, [place] [address] [place] [address] [place], [facility] [address] [place] [address] CKD (chronic kidney disease), stage II; ANCA-associated vasculitis (HCC) Allergies Active Allergy Reactions Criticality Noted Date Comments Avocado 08/04/2012 Stomach cramps Sulfamethoxazole-Trimethopri m 07/06/2019 Really affected renal function last time she took it Mushroom Extract Complex 08/04/2012 Any mushroom: Stomach cramps Onion 08/04/2012 Stomach cramps when onions raw Tetracycline 09/18/2000 Stomach cramps documented as of this encounter (statuses as of 08/19/2023) Medications Medication Sig Dispensed Refills Start Date [...] SolutionIndications:D eviated septum Administer into nostril 1 [place] in the morning AND 1 [place] before bedtime. 30 mL 12 11/19/2021 Active [...] Active Sertraline HCl 100 MG Oral Tablet (Zoloft)Indications:M ajor depressive disorder, [...] as of this encounter (statuses as of 08/19/2023) Active Problems Problem Noted Date Diagnosed Date [...] as of this encounter (statuses as of 08/19/2023) Resolved Problems Problem Noted Date Diagnosed Date [...] as of this encounter (statuses as of 08/19/2023) Immunizations Name Administration Dates Next Due COVID-19 mRNA, LNP-s, No Pre serve, 2-Dose Series (Pfizer) 11/03/2020 PPD 06/11/2015,10/08/2011 Pneumococcal Conjugate Vacci ne, 20-valent ([id number]) 06/25/2023 Pneumococcal Polysaccharide PPV23 (Pneumovax) 11/02/2019 SEASONAL [...] PM EDT Office Visit [facility] [address] [place] [address] Hussein Crowder MD [address] [place] [address] Pending Results Name Type Priority Associated Diagnoses Date /Time BASIC METABOLIC PANEL Lab Routine CKD (chronic kidney disease), stage II ANCA-associated vasculitis (HCC) 08/19/2023 8:51 AM EST CBC Lab Routine CKD (chronic kidney disease), stage II ANCA-associated vasculitis (HCC) 08/19/2023 8:51 AM EST URINALYSIS WITH MICROSCOPIC EXAM Lab Routine CKD (chronic kidney disease), stage II ANCA-associated vasculitis (HCC) 08/19/2023 8:51 AM EST Scheduled Procedures Name Priority Associated [...] or Tdap) 01/26/2024 01/25/2014 TSH 02/10/2024 02/09/2023, 12/2022, 05/27/2021, Additional history exists Mammogram 02/12/2024 02/11/2023, 10/30, 04/05/2020, Additional history exists Cervical Cancer Screening 02/17/2025 Pap Smear 02/17/2025 02/17/2022, 04/2018, 05/05/2018, Additional history exists Diabetes Screening 02/09/2026 02/09/2023, 0 10/01/2022, 02/18/2022, Additional history exists COLONOSCOPY-EVERY 5 YRS AGES [...] as of this encounter Visit Diagnoses Diagnosis CKD (chronic kidney disease), stage II Chronic kidney disease, Stage II (mild) ANCA-associated vasculitis (HCC) Other specified disorders of arteries and arterioles documented in this encounter Advance Directives Latest [...] the patient have Health Care Power of Chief Librarian Circulation Department? No Care Teams Optometrist President/Practice Owner Relationship Specialty Start Date End Date Paulina Ellis DO [address] [place] [address] PCP - General Family Medicine 11/17/18 documented as of this encounter
--- OUTSIDE RECORDS SUMMARY | 2023-09-28 05:34 | External Medical Summary | Summary of Care ---
Author Name Unknown Organization [facility] Address [address] [facility] [place] [address] Phone [phone] Care Team Providers Care Clay Mixer Name Role Phone Caleb Paulina Lucas Primary Care Provider Reason for Visit * Reason Comments Outpatient Testing Encounter Details Date Type Department Care Team (Late st Contact Info) Description 09/07/2023 10:00 AM EST Laboratory Laboratory, [place] [address] [place] [address] [facility] [address] [place] [address] CKD (chronic kidney disease), stage II Allergies Active Allergy Reactions Criticality Noted Date Comments Avocado 08/04/2012 Stomach cramps Sulfamethoxazole-Trimethopri m 07/06/2019 Really affected renal function last time she took it Mushroom Extract Complex 08/04/2012 Any mushroom: Stomach cramps Onion 08/04/2012 Stomach cramps when onions raw Tetracycline 09/18/2000 Stomach cramps documented as of this encounter (statuses as of 09/07/2023) Medications Medication Sig Dispensed Refills Start Date [...] SolutionIndications:D eviated septum Administer into nostril 1 [place] in the morning AND 1 [place] before bedtime. 30 mL 12 11/19/2021 Active [...] as of this encounter (statuses as of 09/07/2023) Active Problems Problem Noted Date Diagnosed Date [...] as of this encounter (statuses as of 09/07/2023) Resolved Problems Problem Noted Date Diagnosed Date [...] as of this encounter (statuses as of 09/07/2023) Immunizations Name Administration Dates Next Due COVID-19 mRNA, LNP-s, No Pre serve, 2-Dose Series (Pfizer) 11/03/2020 PPD 06/11/2015,10/08/2011 Pneumococcal Conjugate Vacci ne, 20-valent ([id number]) 06/25/2023 Pneumococcal Polysaccharide PPV23 (Pneumovax) 11/02/2019 SEASONAL [...] EDT Office Visit NephDeniz thompson [address] [place], [place] [address] Hussein Crowder MD [address] [place] [address] Pending Results Name Type Priority Associated Diagnoses Date /Time CBC Lab Routine CKD (chronic kidney disease), stage II 09/07/2023 10:03 AM EST RENAL FUNCTION PANEL Lab Routine CKD (chronic kidney disease), stage II 09/07/2023 10:03 AM EST URINALYSIS WITH MICROSCOPIC EXAM Lab Routine CKD (chronic kidney disease), stage II 09/07/2023 10:03 AM EST Scheduled Procedures Name [...] the patient have Health Care Power of Front Desk Administrator? No Care Teams Clay Mixer Relationship Specialty Start Date End Date Paulina Ellis DO [address] [place] [address] PCP - General Family Medicine 11/17/18 documented as of this encounter
--- OUTSIDE RECORDS SUMMARY | 2023-09-28 05:34 | External Medical Summary | Summary of Care ---
Author Name Unknown Organization [facility] Address [address] [place] [address] Phone [phone] Care Team Providers Care Knockdown Worker Name Role Phone Paulina Ellis Primary Care Provider Reason for Visit * Reason Onset Date Comments Order Request 08/17/2023 Encounter Details Date Type Department Care Team (Late st Contact Info) Description 08/17/2023 Telephone Nephrology, [place] [address] [place] [address] Services, [facility] [address] [place] [address] Order Request Allergies Active Allergy Reactions Criticality Noted Date [...] SolutionIndications:D eviated septum Administer into nostril 1 [place] in the morning AND 1 [place] before bedtime. 30 mL 12 11/19/2021 Active [...] Sertraline HCl 25 MG Oral Tablet (Zoloft)Indications:Dejan wu depressive disorder, [...] PPD 06/11/2015,10/08/2011 Pneumococcal Conjugate Vacci ne, 20-valent ([id number]) 06/25/2023 Pneumococcal Polysaccharide PPV23 (Pneumovax) 11/02/2019 SEASONAL [...] as of this encounter Miscellaneous Notes * Addendum Note - Raisa Alfaro RN - 08/17/2023 2:45 PM ESTAddended by: RAISA ALFARO on: 08/17/2023 02:45 PM Modules accepted: Orders * Telephone Encounter - Raisa Alfaro RN - 08/17/2023 2:42 PM EST Any other orders? * Telephone Encounter - Belen Gardiner OSA - 08/17/2023 1:17 PM EST Vinayak is experiencing blood in her urine and would like labs to make sure everything is ok. Shouldshe be seen sooner . She would like a cbc ,basic meto. And a urinalysis documented in this encounter Plan of Treatment Upcoming Encounters Date Type Department Care Team (Late st Contact Info) Description 02/17/2024 2:40 PM EDT Office Visit Nephrology, [facility] [address] [place] [address] Hussein Crowder MD 200 [facility] [place] [address] Pending Results Name Type Priority Associated Diagnoses Date /Time BASIC METABOLIC PANEL Lab Routine CKD (chronic kidney disease), stage II ANCA-associated vasculitis (HCC) 08/19/2023 8:51 AM EST Scheduled Orders Name Type Priority Associated Diagnoses Orde r Schedule BASIC METABOLIC PANEL Lab Routine CKD (chronic kidney disease), stage II ANCA-associated vasculitis (HCC) Expected: 08/17/2023 (Approximate), Expires: 08/17/2024 Scheduled Procedures Name Priority Associated Diagnoses Date/Ti [...] Cancer Screening 02/17/2025 Pap Smear 02/17/2025 02/17/2022, 0804/2018, 05/05/2018, Additional history exists Diabetes Screening 02/09/2026 [...] Not on filedocumented as of this encounter Results * (ABNORMAL) URINALYSIS WITH MICROSCOPIC EXAM (08/19/2023 8:51 AM EST) Color, Urine Colorless Colorless, Light Yellow, Yellow, Dark Yellow 08/19/2023 1:26 PM EST [facility] Clarity, Urine Clear Clear 08/19/2023 1:26 PM EST [facility] Glucose, Urine Negative Negative mg/dL 08/19/2023 1:26 PM EST [facility] Bilirubin, Urine Negative Negative 08/19/2023 1:26 PM EST [facility] Ketone, Urine Negative Negative mg/dL 08/19/2023 1:26 PM EST [facility] Specific [place], Urine 1.014 1.003 - 1.030 08/19/2023 1:26 PM EST [facility] Blood, Urine Large(A) Negative 08/19/2023 1:26 PM EST [facility] pH, Urine 6.5 5.0 - 7.5 Units 08/19/2023 1:26 PM EST [facility] Protein, Urine 30(A) Negative mg/dL 08/19/2023 1:26 PM EST [facility] Urobilinogen, Urine Normal Normal mg/dL 08/19/2023 1:26 PM EST [facility] Nitrite, Urine Negative Negative 08/19/2023 1:26 PM EST [facility] Esterase, Urine Trace(A) Negative 08/19/2023 1:26 PM EST [facility] RBC, Urine 50+(A) 0 - 2 /HPF 08/19/2023 1:26 PM EST [facility] WBC, Urine 6-9(A) 0 - 2 /HPF 08/19/2023 1:26 PM EST [facility] Bacteria, Urine 26-50(A) 0 - 25 /HPF 08/19/2023 1:26 PM EST [facility] Urine Urine specimen obtained by clean catch procedure / Unknown Non-blood Collection / Unknown 08/19/2023 8:51 AM EST 08/19/2023 8:51 AM EST Hussein Crowder MD LAB URINE ORDERABLES Performing Organization Address City/State/[facility] Co de Phone Number LABORATORY [facility] [address] [place] [address] * CBC (08/19/2023 8:51 AM EST) WBC 7.54 4.00 - 10.80 K/uL 08/19/2023 1:56 PM EST [facility] RBC 4.50 3.85 - 5.15 M/uL 08/19/2023 1:56 PM EST [facility] HGB 13.1 12.0 - 15.3 g/dL 08/19/2023 1:56 PM EST [facility] HCT 40.8 36.0 - 45.2 % 08/19/2023 1:56 PM EST [facility] MCV 90.7 81.5 - 97.5 fL 08/19/2023 1:56 PM EST [facility] MCH 29.1 27.0 - 34.0 pg 08/19/2023 1:56 PM EST [facility] MCHC 32.1 32.0 - 36.0 g/dL 08/19/2023 1:56 PM EST [facility] RDW 13.0 11.5 - 15.5 % 08/19/2023 1:56 PM EST [facility] PLT 269 140 - 400 K/uL 08/19/2023 1:56 PM EST [facility] MPV 10.5 6.6 - 11.1 fL 08/19/2023 1:56 PM EST [facility] nRBCs 0 <=0 /100 WBCs 08/19/2023 1:56 PM EST [facility] Blood Venous blood specimen / Unknown Venipuncture / Unknown 08/19/2023 8:51 AM EST 08/19/2023 8:51 AM EST Hussein Crowder MD LAB BLOOD ORDERABLES [facility] [address] [place] [address] documented in this encounter Visit Diagnoses Diagnosis CKD (chronic kidney disease), stage II- Primary Chronic kidney disease, Stage II (mild) ANCA-associated [...] the patient have Health Care Power of Messenger Office? No Care Teams Knockdown Worker Relationship Specialty Start Date End Date Paulina Ellis DO [address] [facility] [place] [address] PCP - General Family Medicine 11/17/18 documented as of this encounter
--- OUTSIDE RECORDS SUMMARY | 2023-09-28 05:34 | External Medical Summary | Summary of Care ---
Author Name Unknown Organization [facility] Address [address] [facility] [place] [address] Phone [phone] Care Team Providers Care Post Anesthesia Care Unit Nurse Name Role Phone Paulina Ellis Primary Care Provider Reason for Visit * Reason Onset Date Comments Test Results 08/21/2023 Encounter Details Date Type Department Care Team (Late st Contact Info) Description 08/21/2023 Telephone [facility] [place] [address] Hussein Crowder MD [address] [facility] [place] [address] Test Results Allergies Active Allergy Reactions Criticality Noted Date Comments Avocado 08/04/2012 Stomach cramps Sulfamethoxazole-Trimethopri m 07/06/2019 Really affected renal function last time she took it Mushroom Extract Complex 08/04/2012 Any mushroom: Stomach cramps Onion 08/04/2012 Stomach cramps when onions raw Tetracycline 09/18/2000 Stomach cramps documented as of this encounter (statuses as of 09/09/2023) Medications Medication Sig Dispensed Refills Start Date [...] SolutionIndications:D eviated septum Administer into nostril 1 [place] in the morning AND 1 [place] before bedtime. 30 mL 12 11/19/2021 Active [...] as of this encounter (statuses as of 09/09/2023) Active Problems Problem Noted Date Diagnosed Date [...] as of this encounter (statuses as of 09/09/2023) Resolved Problems Problem Noted Date Diagnosed Date [...] as of this encounter (statuses as of 09/09/2023) Immunizations Name Administration Dates Next Due COVID-19 mRNA, LNP-s, No Pre serve, 2-Dose Series (Pfizer) 11/03/2020 PPD 06/11/2015,10/08/2011 Pneumococcal Conjugate Vacci ne, 20-valent ([id number]) 06/25/2023 Pneumococcal Polysaccharide PPV23 (Pneumovax) 11/02/2019 Seasonal [...] encounter Miscellaneous Notes * Telephone Encounter - Delmis Dimas RN - 08/21/2023 11:51 AM EST This has been fully explained to the patient, who indicates understanding. Orders placed for labs and urine specimen to be repeated in 2-3 weeks. Pt will set a reminder on her calendar. * Telephone Encounter - Delmis Dimas RN - 08/21/2023 11:48 AM EST ----- Message from Hussein Crowder MD sent at 08/21/2023 11:18 AM EST ----- Creat just a bit higher than before. Probably just random variation but given her prior renal Hisotry will do renal panel, CBC, UA and prot/creat just to be sure within 2 to 3 weeks documented in this encounter Plan of Treatment Upcoming Encounters Date Type Department Care Team (Late st Contact Info) Description 09/10/2023 3:40 PM EST Office Visit [facility] [address] [place] [id number] Lowell Christine MD [address] [place] [address] 02/17/2024 2:40 PM EDT Office Visit [facility] [address] [place] [address] Hussein Crowder MD 200 [facility] [place] [address] Scheduled Procedures Name Priority Associated Diagnoses Date/Ti [...] Cancer Screening 02/17/2025 Pap Smear 02/17/2025 02/17/2022, 08/04/2018, 05/05/2018, Additional history exists Diabetes Screening 09/07/2026 [...] 09/07/2023 5:15 PM EST [facility] Specific [place], Urine 1.014 1.003 - 1.030 09/07/2023 5:15 [...] 25 /HPF 09/07/2023 5:15 PM EST [facility] Urine Non-blood Collection / Unknown 09/07/2023 10:03 AM EST 09/07/2023 10:03 AM EST Hussein Crowder MD LAB URINE ORDERABLES Performing Organization Address City/State/[facility] Co de Phone Number LABORATORY [facility] [address] [place] [address] * (ABNORMAL) RENAL FUNCTION PANEL (09/07/2023 10:03 AM EST) BUN 19 6 - 20 mg/dL 09/07/2023 4:24 PM EST [facility] Creatinine 1.4(H) 0.5 - 1.0 mg/dL 09/07/2023 4:24 PM EST [facility] Estimated Glomerular Filtration Rate 48(L) >=60 mL/min [...] MD LAB BLOOD ORDERABLES Performing Organization Address City/State/[facility] Co de Phone Number [facility] [address] [place] [address] * CBC (09/07/2023 10:03 AM EST) WBC [...] LAB BLOOD ORDERABLES [facility] [address] [place] [facility] [address] documented in this encounter Visit Diagnoses Diagnosis CKD (chronic kidney disease), stage II- Primary Chronic kidney disease, Stage II (mild) documented [...] the patient have Health Care Power of Hand Sander? No Care Teams Post Anesthesia Care Unit Nurse Relationship Specialty Start Date End Date Paulina Ellis DO [address] [place] [address] PCP - General Family Medicine 11/17/18 documented as of this encounter
--- OUTSIDE RECORDS SUMMARY | 2023-09-28 05:34 | External Medical Summary | Summary of Care ---
Author Name Unknown Organization [facility] Address [address] [place] [address] Phone [phone] Care Team Providers Care Fixture Designer Name Role Phone Paulina Ellis Primary Care Provider Reason for Visit * Reason Onset Date Comments Order Request 08/17/2023 Encounter Details Date Type Department Care Team (Late st Contact Info) Description 08/17/2023 Telephone Nephrology, [place] [address] [place] [address] Services, [facility] [address] [place] [address] Order Request Allergies Active Allergy Reactions Criticality [...] SolutionIndications:D eviated septum Administer into nostril 1 [place] in the morning AND 1 [place] before bedtime. 30 mL 12 11/19/2021 Active [...] PPD 06/11/2015,10/08/2011 Pneumococcal Conjugate Vacci ne, 20-valent ([id number]) 06/25/2023 Pneumococcal Polysaccharide PPV23 (Pneumovax) 11/02/2019 SEASONAL [...] Visit Nephrology, [facility] Perez [address] [place] [address] Hussein Crowder MD 200 [facility] [place] [address] Scheduled Orders Name Type Priority Associated Diagnoses Orde r Schedule BASIC METABOLIC PANEL Lab Routine CKD (chronic kidney disease), stage II ANCA-associated vasculitis (HCC) Expected: 08/17/2023 (Approximate), Expires: 08/17/2024 CBC Lab Routine CKD (chronic kidney disease), stage II ANCA-associated vasculitis (HCC) Expected: 08/17/2023 (Approximate), Expires: 08/17/2024 URINALYSIS WITH MICROSCOPIC EXAM Lab Routine CKD [...] the patient have Health Care Power of Title Department Manager? No Care Teams Fixture Designer Relationship Specialty Start Date End Date Paulina Ellis DO [address] [place] [address] PCP - General Family Medicine 11/17/18 documented as of this encounter
--- OUTSIDE RECORDS SUMMARY | 2023-09-28 05:34 | External Medical Summary ---
Author Name Unknown Address Unknown Organization K01:[facility] [address] [facility] [address] [place] [address] Laboratory Report Ordering Provider Test Date Status YOLANDA BARTON 09/07/2023 10:03:47 Final Observation Date Value Abnormality Reference (Units ) Status BUN 09/07/2023 10:03:47 19 6-20 (mg/dL) Final Creatinine 09/07/2023 10:03:47 1.4 Above high normal 0.5-1.0 (mg/dL) Final Glomerular filtration rate/1.73 sq M.predicted [Volume Rate/Area] in Serum, Plasma or Blood by Creatinine-based formula (CKD-EPI) 09/07/2023 10:03:47 48 Below low normal >=60 (mL/min) Final eGFR is calculated based on the CKD-EPI 2020 equation SODIUM 09/07/2023 10:03:47 141 135-146 (m mol/L) Final Potassium 09/07/2023 10:03:47 4.4 3.5-5.1 (m mol/L) Final Cl 09/07/2023 10:03:47 103 98-107 (mm ol/L) Final CO2 09/07/2023 10:03:47 29 22-32 (mmo l/L) Final Anion gap 09/07/2023 10:03:47 9 7-15 (mmol /L) Final Glucose 09/07/2023 10:03:47 98 70-120 (mg /dL) Final Calcium 09/07/2023 10:03:47 9.3 8.4-10.2 ( mg/dL) Final Albumin 09/07/2023 10:03:47 4.2 3.8-5.0 (g /dL) Final Phosphate 09/07/2023 10:03:47 3.6 2.5-4.8 (m g/dL) Final Performing Location [facility] [address] [place] [address]
--- OUTSIDE RECORDS SUMMARY | 2023-09-28 05:35 | External Medical Summary | Summary of Care ---
Author Name Unknown Organization [facility] Address [address] [facility] [place] [address] Phone [phone] Care Team Providers Care Bridge Engineer Name Role Phone Paulina Ellis Primary Care Provider [phone] Encounter Details Date Type Department Care Team Description 06/25/2023 Nurse Only Ancillary Department, [place] [address] [place] [address] [place], Nurse [address] [place] [address] Arrived Allergies Active Allergy Reactions Severity Noted Date Comments Avocado 08/04/2012 Stomach cramps Sulfamethoxazole-Trimethoprim 2018 Really affected renal function last time she took it Mushroom Extract Complex 08/04/2012 Any mushroom: Stomach cramps Onion 08/04/2012 Stomach cramps when onions raw Tetracycline 09/18/2000 Stomach cramps documented as of this encounter (statuses as of 06/25/2023) Medications Medication Sig Dispensed Refills Start Date [...] SolutionIndications:D eviated septum Administer into nostril 1 [place] in the morning AND 1 [place] before bedtime. 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 Dyspnea and respiratory abnormality 12/27 Overview: ICD-10 update of inactive term Deviated nasal septum 01/14/2010 Hypertrophy of nasal turbinates 01/15/20 10 Eosinophilic esophagitis 01/14/2010 documented as of this encounter (statuses as of 06/25/2023) Resolved Problems Problem Noted Date Resolved Date Otalgia 01/20/2017 03/18/2017 Sinus congestion 01/20/2017 03/18/2017 Cough 10/13/2016 03/18/2017 Mixed rhinitis 10/13/2016 03/18/2017 Chronic rhinitis 10/09/2014 10/13/2016 UTI (urinary tract infection) 06/04/2012 Anemia of chronic renal failure 12/24/2011 04/17/2015 Dysfunction of eustachian tube 01/14/2010 0 03/18/2017 Hypertrophy of adenoids 01/14/2010 03/18/20 17 Other chronic sinusitis 01/14/2010 03/18/20 17 Allergic rhinitis 01/14/2010 03/18/2017 documented as of this encounter (statuses as of 06/25/2023) Immunizations Name Administration Dates Next Due COVID-19 mRNA, LNP-s, No Pre serve, 2-Dose Series (Pfizer) 11/03/2020 PPD 06/11/2015,10/08/2011 Pneumococcal Conjugate Vacci ne, 20-valent ([id number]) 06/25/2023 Pneumococcal Polysaccharide PPV23 (Pneumovax) 11/02/2019 Seasonal Influenza, PF, 6 mo ns & Above, IM , (Flulaval) 06/25/2023,07/10/2020,06/04/2019,07/30,08/03/2017 Seasonal Influenza, Quadriva lent, No Preserve, [...] = 0.6 oz pur e alcohol) rare Food Insecurity Answer Date Recorded Within the past 12 months, y ou worried that your food would run out before you got money to buy more. Never true 06/04/2019 Within the past 12 months, t he food you bought just didn't last and you didn't have money to get more. Never true 06/04/2019 Sex Assigned at Date Recorded Female 10/25/2019 10:33 AM EST Job Start Date Occupation Industry Not on file Not on file Not on file documented as of this encounter Patient Instructions * Patient Instructions* Dilia Sargent LPN - 06/25/2023 2:27 PM EDT ~~PATIENT INSTRUCTIONS FOR PNEUMOCOCCAL VACCINE~~ Possible side effects of pneumococcal vaccine, (pneumonia shot), are usually mild and can include: 1. Soreness or redness at injection site 2. Low grade fever 3. Body aches You may use Tylenol/Acetaminophen as needed for these symptoms. LET YOUR DOCTOR KNOW IMMEDIATELY IF YOU HAVE DIFFICULTY BREATHING OR SWALLOWING, EXPERIENCE ITCHINGOF FEET OR HANDS, HAVE SWELLING OF EYES, FACE OR INSIDE OF NOSE. documented in this encounter Progress Notes * Dilia Sargent LPN - 06/25/2023 2:26 PM EDT Immunization Administration Documentation Time Out Procedure Performed: Yes Patient Identified (Ask Name/Date of ): Yes Does the patient have a fever greater than 101 degrees today? No Patient allergic to latex? No VFC Stock: No Immunization(s) verified: Yes, Immunization Name: Pneumovax (Pneumococcal Adult), VIS Sheet(s) given: Yes Verified Side and Site: Yes Verified Shot(s) with Parent(s)/Patient: Yes documented in this encounter Nursing Notes * Dilia Sargent LPN - 06/25/2023 2:35 PM EDT Pre-Administration Time Out Procedure Performed: Yes Patient Identified (Ask Name/Date of ): Yes Does the patient have a fever greater than 101 degrees today? No Patient allergic to latex? No Has the patient ever fainted after receiving an injection? No VFC Stock: No Immunization(s) verified: Yes, Immunization Name: Flu, VIS Sheet(s) given: Yes Verified Side and Site: Yes Verified Shot(s) with Parent(s)/Patient: Yes documented in this encounter Plan of Treatment Upcoming Encounters Date Type Specialty Care Team Description 02/17/2024 Office Visit Nephrology Hussein Crowder MD [address] [place] [address] Scheduled Procedures Name Priority Associated Diagnoses Date/Ti me COLONOSCOPY FLEXIBLE PROXIMA L DIAGNOSTIC Recall History of colonic polyps Health Maintenance Due Date Last Done Comments Hepatitis B (1 of 3 - 3-dose series) 1975 HIV Screening 1990 Hepatitis C Screening 1993 HPV/Co-Test 2005 COVID-19 Vaccine (4 - Pfizer series) 10/23/2021 08/28/2021, 11/24/2020, 11/03/2020 Depression Screening 11/19/2022 11/19/2021 DTaP,Tdap,and Td Vaccines (2 - Td or [...] as of this encounter Visit Diagnoses Diagnosis Need for pneumococcal vaccination- Primary Need for prophylactic vaccination against streptococcus pneumoniae (pneumococcus) documented in this encounter Advance Directives Latest [...] the patient have Health Care Power of Dealer Accounts Investigator? No Care Teams Bridge Engineer Relationship Specialty Start Date End Date Paulina Ellis, DO [address] [place] [address] PCP - General Family Medicine 11/17/18 documented as of this encounter
--- OUTSIDE RECORDS SUMMARY | 2023-09-28 05:35 | External Medical Summary | Summary of Care ---
Author Name Unknown Organization [facility] Address [address] [facility] [place] [address] Phone [phone] Care Team Providers Care Screen Tender Helper Name Role Phone Paulina Ellis Primary Care Provider [phone] Reason for Visit * Reason Comments Acute Encounter Details Date Type Department Care Team (Late st Contact Info) Description 07/22/2023 5:40 PM EDT Telemedicine [facility] [address] [place] [address] January, Dante Khan MD [address] [place] [address] Acute non-recurrent frontal sinusitis*; Major depressive disorder, recurrent episode, mild (HCC) Allergies Active Allergy Reactions Criticality Noted Date Comments Avocado 08/04/2012 Stomach cramps Sulfamethoxazole-Trimethopri m 07/06/2019 Really affected renal function last time she took it Mushroom Extract Complex 08/04/2012 Any mushroom: Stomach cramps Onion 08/04/2012 Stomach cramps when onions raw Tetracycline 09/18/2000 Stomach cramps documented as of this encounter (statuses as of 07/22/2023) Medications Medication Sig Dispensed Refills Start Date [...] SolutionIndications:D eviated septum Administer into nostril 1 [place] in the morning AND 1 [place] before bedtime. 30 mL 12 11/19/2021 Active [...] 175 MG 90 Tablet 3 05/18/2023 Active Amoxicillin-Pot Clavulanate 875-125 MG Oral Tablet (Augmentin)Indication s:Acute non-recurrent frontal sinusitis Take 1 Tablet by mouth in the morning and 1 Tablet before bedtime. Do all this for 7 days. 14 Tablet 0 07/22/2023 3 Active documented as of this encounter (statuses as of 07/22/2023) Active Problems Problem Noted Date Diagnosed Date [...] as of this encounter (statuses as of 07/22/2023) Resolved Problems Problem Noted Date Diagnosed Date [...] as of this encounter (statuses as of 07/22/2023) Immunizations Name Administration Dates Next Due COVID-19 mRNA, LNP-s, No Pre serve, 2-Dose Series (Pfizer) 11/03/2020 PPD 06/11/2015,10/08/2011 Pneumococcal Conjugate Vacci ne, 20-valent ([id number]) 06/25/2023 Pneumococcal Polysaccharide PPV23 (Pneumovax) 11/02/2019 SEASONAL [...] = 0.6 oz pur e alcohol) rare Sex and Gender Information Value Date Recorded Sex Assigned at Female 10/25/2019 10:33 AM EST Gender Identity Female 10/25/2019 10:33 AM EST Sexual Orientation Straight 10/25/2019 10 :33 AM EST Job Start Date Occupation Industry Not on file Not on file Not on file documented as of this encounter Progress Notes * Dante Travis MD - 07/22/2023 5:46 PM EDT Images from the original note were not included. Assessment and Plan 1. Acute non-recurrent frontal sinusitis Sinusitis worsening after 7 days. Treat with augmentin as below. Continue OTC medications. Hydration. - Amoxicillin-Pot Clavulanate 875-125 MG Oral Tablet (Augmentin); Take 1 Tablet by mouth in the morning and 1 Tablet before bedtime. Do all this for 7 days. Dispense: 14 Tablet; Refill: 0 2. Major depressive disorder, recurrent episode, mild (HCC) On sertraline 175 mg daily. Wrap-Up Follow up as needed. History of Present Illness The patient is a 47-year-old female with past medical history of hypothyroidism, mild persistent asthma, restless legs syndrome, depression who presents via video visit due to illness. Patient presents with 7 days of significant sinus congestion, mucus production, bloody mucus from the nose. Significant ear pain bilaterally. She notes swollen glands especially on the left side. Shehas had some body aches and chills in addition to night sweats intermittently. She denies shortnessof breath. She has been using cough drops and DayQuil/NyQuil with some improvement. She also has been using some fluticasone. Physical Exam There were no vitals filed for this visit. Physical Exam Physical Exam Constitutional: General: She is not in acute distress. Pulmonary: Effort: Pulmonary effort is normal. No respiratory distress. Neurological: General: No focal deficit present. Mental Status: She is alert. Patient location: HOME. I was in a hospital or clinic location. After connecting through televideo,patient was verified with two unique identifiers. Patient (or authorized legal energy conservation representative) was then informed that this was a Telemedicine visit and being conducted confidentially over secure lines. Methods to assure confidentiality were taken. Patient acknowledged consent and understanding of pr ivacy and security of the Telemedicine visit. The patient agreed to participate. documented in this encounter Plan of Treatment Upcoming Encounters Date Type Department Care Team (Late st Contact Info) Description 02/17/2024 2:40 PM EDT Office Visit Nephrology, [facility] [address] [place] [address] Hussein Crowder MD [address] [place] [address] Scheduled Procedures Name Priority Associated Diagnoses Date/Ti me COLONOSCOPY FLEXIBLE PROXIMA L DIAGNOSTIC Recall History of colonic polyps Health Maintenance Due Date Last Done Comments Hepatitis B (1 of 3 - 3-dose series) 1975 HIV Screening 1990 Hepatitis C Screening 1993 HPV/Co-Test 2005 Depression Screening 11/19/2022 11/19/2021 COVID-19 Vaccine (4 - season) 2023 08/28/2021, 11/24/2020, 11/03/2020 DTaP,Tdap,and Td Vaccines (2 - Td or Tdap) 01/26/2024 01/25/2014 TSH 02/10/2024 02/09/2023, 12/2022, 05/27/2021, Additional history exists Mammogram 02/12/2024 02/11/2023, 10/30, 04/05/2020, Additional history exists Cervical Cancer Screening 02/17/2025 Pap Smear 02/17/2025 02/17/2022, 080 04/2018, 05/05/2018, Additional history exists Diabetes Screening [...] as of this encounter Visit Diagnoses Diagnosis Acute non-recurrent frontal sinusitis- Primary Major depressive disorder, recurrent episode, mild (HCC) Major depressive disorder, recurrent episode, mild documented in this encounter Advance Directives Latest [...] the patient have Health Care Power of Systems Development Manager? No Care Teams Screen Tender Helper Relationship Specialty Start Date End Date Paulina Ellis DO [address] [place] [place] [address] PCP - General Family Medicine 11/17/18 documented as of this encounter
--- OUTSIDE RECORDS SUMMARY | 2023-09-28 05:35 | External Medical Summary | Summary of Care ---
Author Name Unknown Organization [facility] Address [address] [place] [address] Phone [phone] Care Team Providers Care Needle Punch Machine Operator Name Role Phone Paulina Ellis Primary Care Provider [phone] Reason for Visit * Reason Onset Date Comments Order Request 08/17/2023 Encounter Details Date Type Department Care Team (Late st Contact Info) Description 08/17/2023 Telephone Nephrology, [place] [address] [place] [address] Services, [facility] [address] [place] [address] Order Request Allergies Active Allergy Reactions Criticality Noted Date Comments Avocado 08/04/2012 Stomach cramps Sulfamethoxazole-Trimethopri m 07/06/2019 Really affected renal function last time she took it Mushroom Extract Complex 08/04/2012 Any mushroom: Stomach cramps Onion 08/04/2012 Stomach cramps when onions raw Tetracycline 09/18/2000 Stomach cramps documented as of this encounter (statuses as of 08/17/2023) Medications Medication Sig Dispensed Refills Start Date [...] SolutionIndications:D eviated septum Administer into nostril 1 [place] in the morning AND 1 [place] before bedtime. 30 mL 12 11/19/2021 Active [...] as of this encounter (statuses as of 08/17/2023) Active Problems Problem Noted Date Diagnosed Date [...] as of this encounter (statuses as of 08/17/2023) Resolved Problems Problem Noted Date Diagnosed Date [...] as of this encounter (statuses as of 08/17/2023) Immunizations Name Administration Dates Next Due COVID-19 mRNA, LNP-s, No Pre serve, 2-Dose Series (Pfizer) 11/03/2020 PPD 06/11/2015,10/08/2011 Pneumococcal Conjugate Vacci ne, 20-valent ([id number]) 06/25/2023 Pneumococcal Polysaccharide PPV23 (Pneumovax) 11/02/2019 SEASONAL [...] encounter Miscellaneous Notes * Telephone Encounter - Raisa Manjarrez RN - 08/17/2023 2:42 PM EST Any [...] EDT Office [place] [facility] [address] [place] [address] Hussein Crowder MD [address] [facility] [place] [id number] Scheduled Procedures Name Priority Associated Diagnoses Date/Ti me COLONOSCOPY FLEXIBLE PROXIMA L DIAGNOSTIC Recall History of colonic polyps Health Maintenance Due Date Last Done Comments Hepatitis B (1 of 3 - 3-dose series) 1975 HIV Screening 1990 Hepatitis C Screening 1993 HPV/Co-Test 2005 Depression Screening 11/19/2022 11/19/2021 COVID-19 Vaccine ( - season) 2023 08/28/2021, 11/24/2020, 11/03/2020 DTaP,Tdap,and [...] the patient have Health Care Power of Cover Assembler? No Care Teams Needle Punch Machine Operator Relationship Specialty Start Date End Date Paulina Ellis DO [address] [place] [address] PCP - General Family Medicine 11/17/18 documented as of this encounter
--- OUTSIDE RECORDS SUMMARY | 2023-09-28 05:35 | External Medical Summary | Summary of Care ---
Author Name Unknown Organization [facility] Address [address] [place] [address] Phone [phone] Care Team Providers Care Inspector Outside Production Name Role Phone Paulina Ellis Primary Care Provider Reason for Visit * Reason Onset Date Comments Order Request 08/17/2023 Encounter Details Date Type Department Care Team (Late st Contact Info) Description 08/17/2023 Telephone Nephrology, [place] [address] [place] [address] Services, [facility] [address] [place] [address] Order Request Allergies Active Allergy Reactions Criticality [...] SolutionIndications:D eviated septum Administer into nostril 1 [place] in the morning AND 1 [place] before bedtime. 30 mL 12 11/19/2021 Active [...] PPD 06/11/2015,10/08/2011 Pneumococcal Conjugate Vacci ne, 20-valent ([id number]) 06/25/2023 Pneumococcal Polysaccharide PPV23 (Pneumovax) 11/02/2019 SEASONAL [...] encounter Miscellaneous Notes * Telephone Encounter - Belen Gardiner OSA [...] EDT Office Visit Nephrology, [facility] [place] [address] [place] [address] Hussein Crowder MD [address] [place] [address] Scheduled Procedures Name Priority Associated Diagnoses Date/Ti [...] the patient have Health Care Power of Beef Cattle Specialist? No Care Teams Inspector Outside Production Relationship Specialty Start Date End Date Paulina Ellis DO [address] [place] [address] PCP - General Family Medicine 11/17/18 documented as of this encounter
--- OUTSIDE RECORDS SUMMARY | 2023-09-28 05:35 | External Medical Summary | Summary of Care ---
Author Name Unknown Organization [facility] Address [address] [place] [address] Phone [phone] Care Team Providers Care Nut Former Name Role Phone Paulina Ellis Primary Care Provider [phone] Reason for Visit * Reason Onset Date Comments Order Request 08/17/2023 Encounter Details Date Type Department Care Team (Late st Contact Info) Description 08/17/2023 Telephone Nephrology, [place] [address] [place] [address] Services, [facility] [address] [place] [address] Order Request Allergies Active Allergy Reactions Criticality [...] SolutionIndications:D eviated septum Administer into nostril 1 [place] in the morning AND 1 [place] before bedtime. 30 mL 12 11/19/2021 Active [...] PPD 06/11/2015,10/08/2011 Pneumococcal Conjugate Vacci ne, 20-valent ([id number]) 06/25/2023 Pneumococcal Polysaccharide PPV23 (Pneumovax) 11/02/2019 SEASONAL [...] Visit Nephrology, [facility] [address] [place] [address] Hussein Crowder MD [address] [facility] [place] [address] Scheduled Orders Name Type Priority Associated Diagnoses [...] the patient have Health Care Power of Home Child Care Provider? No Care Teams Nut Former Relationship Specialty Start Date End Date Paulina Ellis DO [address] [place] [address] PCP - General Family Medicine 11/17/18 documented as of this encounter
--- OUTSIDE RECORDS SUMMARY | 2023-09-28 05:35 | External Medical Summary | Summary of Care ---
Author Name Unknown Organization [facility] Address [address] [facility] [place] [address] Phone [phone] Care Team Providers Care Dynamometer Tester Name Role Phone Seth Allred Primary Care Provider [phone] Reason for Visit * Reason Comments eRx-Medication Refill Encounter Details Date Type Department Care Team Description 03/31/2023 Refill [facility] [address] [place] [address] Delmis Rutledge PA-C [address] [place] [address] Hypothyroidism Allergies Active Allergy Reactions Severity Noted Date Comments Avocado 08/04/2012 Stomach cramps Sulfamethoxazole-Trimethoprim 2018 Really affected renal function last time she took it Mushroom Extract Complex 08/04/2012 Any mushroom: Stomach cramps Onion 08/04/2012 Stomach cramps when onions raw Tetracycline 09/18/2000 Stomach cramps documented as of this encounter (statuses as of 04/01/2023) Medications Medication Sig Dispensed Refills Start Date End Date Status SUCRALFATE 1 G PO TABS One pill as a slurry by mouth 30 minutes before meals and at bedtime 60 Tab 1 5 Active Levocetirizine Dihydrochloride 5 MG Oral TabletIndications:P ND (post-nasal drip) Take 1 Tab by mouth every evening. 30 Tab 0 1 Active B-12 1000 MCG Oral Tablet Take one daily 0 1 Active Additional Information Patient not taking.Reported on 02/10/2023 Ondansetron HCl 4 MG Oral TabletIndications:S tress Take by mouth 1 Tablet every 6 hours as needed for Nausea. 30 Tablet 0 2 Active Azelastine HCl 0.1 % Nasal SolutionIndications :Deviated septum Administer into nostril 1 Alpha in the morning AND 1 Alpha before bedtime. 30 mL 12 2 Active Saccharomyces boulardii 250 MG Oral Capsule (Florastor)Indicati ons:Colitis Take by mouth 1 Capsule in the morning AND 1 Capsule before bedtime. 60 Capsule 0 2 Active Additional Information Patient not taking.Reported on 02/10/2023 Scopolamine 1 MG/3DAYS Transdermal Patch 72 Hour (Transderm-Scop (1.5 MG))Indications:Sea sickness, initial encounter Place topically on the skin 1 Patch every 3 days . 4 hours before event. May replace every 3 days. . 4 Patch 1 2 Active Additional Information Patient not taking.Reported on 02/10/2023 ProAir RespiClick 108 (90 Base) MCG/ACT Inhalation Aerosol Powder Breath Activated (Albuterol Sulfate)Indications :Bronchitis, complicated Inhale by mouth 2 Puffs every 4 hours as needed for Cough, Shortness of Breath or Wheezing. 3 Each 4 2 Active Advair Diskus 250-50 MCG/ACT Inhalation Aerosol Powder Breath Activated (Fluticasone-Salmet keyshawn) USE 1 INHALATION EVERY 12 HOURS 60 Each 3 2 Active Sertraline HCl 25 MG Oral Tablet (Zoloft)Indications :Major depressive disorder, recurrent episode, mild (HCC) TAKE 1 TABLET DAILY WITH 150 MG FOR TOTAL OF 175 MG 90 Tablet 3 2 Active Sertraline HCl 100 MG Oral Tablet (Zoloft)Indications :Major depressive disorder, recurrent episode, mild (HCC) TAKE ONE AND ONE-HALF TABLETS DAILY WITH 25 MG FOR TOTAL OF 175 MG DAILY 135 Tablet 3 2 Active Fluticasone Propionate 50 MCG/ACT Nasal Suspension (Flonase) Administer 2 Sprays into each nostril in the morning. 16 g 1 3 Active Cetirizine HCl 10 MG Oral Tablet (ZyrTEC) Take 1 Tablet by mouth in the morning. 90 Tablet 3 3 Active Lisinopril 2.5 MG Oral Tablet (Prinivil)Indicatio ns:ANCA-associated vasculitis (HCC) TAKE 1 TABLET DAILY 90 Tablet 3 3 Active Levothyroxine Sodium 50 MCG Oral Tablet (Levoxyl)Indication s:Hypothyroidism TAKE 1 TABLET DAILY AT LEAST 30 MINUTES BEFORE BREAKFAST AND OTHER MEDICATIONS 90 Tablet 1 3 Active Levothyroxine Sodium 50 MCG Oral Tablet (Levoxyl)Indication s:Hypothyroidism TAKE 1 TABLET DAILY AT LEAST 30 MINUTES BEFORE BREAKFAST AND OTHER MEDICATIONS 90 Tablet 1 3 04/01/20 23 Discontinued documented as of this encounter (statuses as of 04/01/2023) Active Problems Problem Noted Date Seasonal allergies [...] as of this encounter (statuses as of 04/01/2023) Resolved Problems Problem Noted Date Resolved Date [...] as of this encounter (statuses as of 04/01/2023) Immunizations Name Administration Dates Next Due COVID-19 mRNA, LNP-s, No Pre serve, 2-Dose Series (Pfizer) 11/03/2020 PPD 06/11/2015,10/08/2011 Pneumococcal Polysaccharide PPV23 (Pneumovax) 11/02/2019 Seasonal Influenza, Quadriva lent, No Preserve, 6 Mons & Above, IM 07/10/2020,06/04/2019,08/23/2018,02/2017 Seasonal Influenza, Quadriva lent, No Preserve, IM [...] encounter Miscellaneous Notes * Telephone Encounter - Luis E Zayas RPh - 04/01/2023 10:39 AM EDTSigned Prescriptions: Disp Refills Levothyroxine Sodium 50 MCG Oral Tablet (L*90 Tab*1 Sig: TAKE 1 TABLET DAILY AT LEAST 30 MINUTES BEFORE BREAKFAST AND OTHER MEDICATIONSAuthorizing Provider: SETH ALLRED User: LUIS E ZAYAS documented in this encounter Plan of Treatment Upcoming Encounters Date Type Specialty Care Team Description 02/17/2024 Office Visit Nephrology Hussein Crowder MD [address] [facility], [place] [address] Scheduled Procedures Name Priority Associated Diagnoses Date/Ti me COLONOSCOPY FLEXIBLE PROXIMA L DIAGNOSTIC Recall History of colonic polyps Health Maintenance Due Date Last Done Comments Hepatitis B (1 of 3 - 3-dose series) 1975 HIV Screening 1990 Hepatitis C Screening 1993 Pneumococcal Vaccine: Pediatrics (0 to 5 Years) and At-Risk Patients (6 to 64 Years) (2 - PCV) 11/02/2020 11/02/2019 COVID-19 Vaccine (4 - Pfizer series) 10/23/2021 08/28/2021, 11/24/2020, 11/03/2020 Depression Screening, Annual for Pts 12 and Over 11/19/2022 11/19/2021 Influenza Vaccine (FLU shot) (#1) 2023 07/10/2020, 06/04/2019, 08/23/2018, Additional history exists DTaP,Tdap,and Td Vaccines (2 - Td or Tdap) 01/26/2024 01/25/2014 TSH 02/10/2024 02/09/2023, 01/0 12/2022, 05/27/2021, Additional history exists Mammogram 02/12/2024 02/11/2023, 10/30, 04/05/2020, Additional history exists Diabetes Screening 02/09/2026 02/09/2023, 0 10/01/2022, 02/18/2022, Additional history exists COLONOSCOPY-EVERY 5 YRS AGES 18-100 12/24/2026 12/24/2021, 12/24/2021 Pap Smear 02/17/2027 02/17/2022, 08/04/2018, 05/05/2018, Additional history exists Lipid Panel 02/10/2028 02/09/2023, 01/27, 10/06/2012, Additional history exists Colonoscopy Discontinued 12/24/2021, 12/24/2021 Colorectal Cancer Screening Discontinued Cologuard Discontinued Fecal Occult Blood Test Discontinued GARDASIL-HPV IMMUNIZATION SERIES Aged Out No longer eligible based on patient's age to complete this topic MENINGOCOCCAL (MENACTRA/MENVEO) Aged Out No longer eligible based on patient's age to complete this topic Sigmoidoscopy Discontinued documented as of this encounter Medical Devices Not on filedocumented as of this encounter Visit Diagnoses Diagnosis Hypothyroidism Unspecified hypothyroidism documented in this encounter Advance Directives Latest [...] the patient have Health Care Power of Nursing Specialist? No Care Teams Dynamometer Tester Relationship Specialty Start Date End Date Seth Allred, [address] [place] [address] PCP - General Family Medicine 11/17/18 documented as of this encounter
--- OUTSIDE RECORDS SUMMARY | 2023-09-28 05:35 | External Medical Summary | Summary of Care ---
Author Name Unknown Organization [facility] Address [address] [facility] [place] [address] Phone [phone] Care Team Providers Care Calibration Checker Name Role Phone Seth Allred DO Primary Care Provider Reason for Visit * Reason Comments eRx-Medication Refill Encounter Details Date Type Department Care Team Description 05/18/2023 Refill [facility] [address] [place] [address] Seth Allred DO [address] [place] [address] Major depressive disorder, recurrent episode, mild (HCC) Allergies Active Allergy Reactions Severity Noted Date Comments Avocado 08/04/2012 Stomach cramps Sulfamethoxazole-Trimethoprim 2018 Really affected renal function last time she took it Mushroom Extract Complex 08/04/2012 Any mushroom: Stomach cramps Onion 08/04/2012 Stomach cramps when onions raw Tetracycline 09/18/2000 Stomach cramps documented as of this encounter (statuses as of 05/18/2023) Medications Medication Sig Dispensed Refills Start Date [...] SolutionIndications :Deviated septum Administer into nostril 1 [place] in the morning AND 1 [place] before bedtime. 30 mL 12 2 Active [...] 12 HOURS 60 Each 3 2 Active Fluticasone Propionate 50 MCG/ACT [...] OTHER MEDICATIONS 90 Tablet 1 3 Active Sertraline HCl 100 MG Oral Tablet (Zoloft)Indications :Major depressive disorder, recurrent episode, mild (HCC) TAKE ONE AND ONE-HALF TABLETS DAILY WITH 25 MG FOR TOTAL OF 175 MG DAILY 135 Tablet 3 3 Active Sertraline HCl 25 MG Oral Tablet (Zoloft)Indications :Major depressive disorder, recurrent episode, mild (HCC) TAKE 1 TABLET DAILY WITH 150 MG FOR TOTAL OF 175 MG 90 Tablet 3 3 Active Sertraline HCl 25 MG Oral Tablet (Zoloft)Indications :Major depressive disorder, recurrent episode, mild (HCC) TAKE 1 TABLET DAILY WITH 150 MG FOR TOTAL OF 175 MG 90 Tablet 3 2 05/18/20 23 Discontinued Sertraline HCl 100 MG Oral Tablet (Zoloft)Indications :Major depressive disorder, recurrent episode, mild (HCC) TAKE ONE AND ONE-HALF TABLETS DAILY WITH 25 MG FOR TOTAL OF 175 MG DAILY 135 Tablet 3 2 05/18/20 23 Discontinued documented as of this encounter (statuses as of 05/18/2023) Active Problems Problem Noted Date Seasonal allergies [...] as of this encounter (statuses as of 05/18/2023) Resolved Problems Problem Noted Date Resolved Date [...] as of this encounter (statuses as of 05/18/2023) Immunizations Name Administration Dates Next Due COVID-19 mRNA, LNP-s, No Pre serve, 2-Dose Series (Pfizer) 11/03/2020 PPD 06/11/2015,10/08/2011 Pneumococcal Polysaccharide PPV23 (Pneumovax) 11/02/2019 Seasonal Influenza, PF, 6 mo ns & Above, IM , (Flulaval) 07/10/2020,06/04/2019,08/23/2018,11/0 02/2017 Seasonal Influenza, Quadriva lent, No Preserve, IM [...] encounter Miscellaneous Notes * Telephone Encounter - John [facility] - 05/18/2023 3:21 PM EDT Signed Prescriptions: Disp Refills Sertraline HCl 100 MG Oral Tablet (Zoloft) 135 Ta*3 Sig: TAKE ONE AND ONE-HALF TABLETS DAILY WITH 25 MG FOR TOTAL OF 175 MG DAILYAuthorizing Provider: SETH ALLRED User: JOHN SIERRA Sertraline HCl 25 MG Oral Tablet (Zoloft) 90 Tab*3 Sig: TAKE 1 TABLET DAILY WITH 150 MG FOR TOTAL OF 175 MGAuthorizing Provider: SETH ALLRED User: JOHN SIERRA documented in this encounter Plan of Treatment Upcoming Encounters Date Type Specialty Care Team Description 02/17/2024 Office Visit Nephrology Hussein Crowder MD [address] [place] [address] Scheduled Procedures Name Priority Associated Diagnoses Date/Ti me COLONOSCOPY FLEXIBLE PROXIMA L DIAGNOSTIC Recall History of colonic polyps Health Maintenance Due Date Last Done Comments Hepatitis B (1 of 3 - 3-dose series) 1975 HIV Screening 1990 Hepatitis C Screening 1993 HPV/Co-Test 2005 Pneumococcal Vaccine: Pediatrics (0 to 5 Years) [...] as of this encounter Visit Diagnoses Diagnosis Major depressive disorder, recurrent episode, mild (HCC) [...] the patient have Health Care Power of Lap Checker? No Care Teams Calibration Checker Relationship Specialty Start Date End Date Seth Allred, [address] [place] [address] PCP - General Family Medicine 11/17/18 documented as of this encounter
[2023-09-28] MEDS ORDERED: ONDANSETRON INJ 2 MG/ML 2 ML VIAL IV STA ×2 (05:52→08:53)
[2023-09-28] MEDS ORDERED: SODIUM CHLORIDE 0.9% 1,000 ML IV SCH (06:00)
[2023-09-28 06:19] LABS: Basophils # (auto) 0.03 K/uL (0.00-0.20); Basophils % (auto) 0.2 %; Eosinophils # (auto) 0.09 K/uL (0.00-0.50); Eosinophils % (auto) 0.6 %; Hematocrit (blood only) 39.3 % (37.0-47.0); Hemoglobin 13.1 g/dl (12.0-16.0); Immature Granulocytes # (auto) 0.08 K/uL (0.01-0.20); Immature Granulocytes % (auto) 0.5 %; Lymphocytes # (auto) 1.28 K/uL (1.20-3.40); Lymphocytes % (auto) 8.7 %; Mean Corpuscular Hemoglobin 28.8 pg (25.0-34.0); Mean Corpuscular Hgb Conc 33.3 g/dL (32.0-36.0); Mean Corpuscular Volume 86.4 fL (80.0-100.0); Mean Platelet Volume 10.5 fL (9.4-12.4); Monocytes # (auto) 0.62 K/uL (0.11-0.59); Monocytes % (auto) 4.2 %; Neutrophils # (auto) 12.57 K/uL (1.40-6.50); Neutrophils % (auto) 85.8 %; Platelet Count 332 K/uL (130-400); RDW Coefficient of Variation 13.2 % (11.5-14.5); RDW Standard Deviation 41.1 fL (36.4-46.3); Red Blood Count 4.55 M/uL (4.20-5.40); White Blood Count 14.67 K/ul (4.8-10.8)
[2023-09-28 06:33] LABS: Pregnancy Test, Serum Negative (Negative)
[2023-09-28 06:36] LABS: Albumin Globulin Ratio 1.2 (0.9-2); Albumin Level 4.1 gm/dl (3.4-5.0); BUN Creatinine Ratio 20.9 (10-20); Bilirubin,Total 0.5 mg/dl (0.2-1.0); Calcium 9.5 mg/dl (8.6-10.3); Creatinine Clr Calc Pharmacy 57.5 ml/min; Est GFR (African American) 56.7 ml/min; Est GFR (Non-African American) 48.9 ml/min; Globulin 3.4 gm/dl (2.5-4.0); Magnesium 1.8 mg/dl (1.7-2.4); Potassium 3.9 mmol/L (3.5-5.1); Total Protein 7.5 gm/dl (6.0-8.3)
[2023-09-28] MEDS ORDERED: PANTOprazole 40 MG in SYRINGE 0 ML IV ONE (06:41)
[2023-09-28] MEDS ORDERED: FAMOTIDINE 20MG IV PUSH 20 MG/5 ML SYR IV STA (06:41)
[2023-09-28] MEDS ORDERED: LACTATED RINGER'S 1,000 ML IV ONE (06:42)
[2023-09-28 06:43] LABS: Troponin I High Sensitivity 3.5 pg/ml (0-14)
--- NOTE | 2023-09-28 06:47 | Emergency Department Note ---
Impression & Plan Syncope, LOU (acute kidney injury), Vomiting and diarrhea, Cough ED Provider Note NAME: MARCELINO BATES AGE: 48 SEX: F : 1975 ARRIVES VIA: Walk-In INFORMANT: [Patient] ED PROVIDER(S): [Matt Tafoya MD] CHIEF COMPLAINT: Fall HISTORY OF PRESENT ILLNESS: The patient is a 48-year-old female who states that last night, she woke up with some acid reflux. She woke up a second time and felt quite nauseated. She grabbed her bedside wastebasket and the next thing she knows, she woke up on the floor. She apparently had passed out. She has a headache and she believes she struck her head. She had vomited and felt the vomit burning in her nose and she began coughing, she is concern for aspiration. The patient did vomit several times more, she also developed diarrhea. No blood in the vomit or diarrhea. She has no abdominal pain, no fever. There has been no cough or congestion recently. The patient did not have any food that she thinks is an issue. She does admit that her and son are sick with similar symptoms. PMHx/PSHx/Social Hx: See Below PHYSICAL EXAM: GENERAL: Patient is in no acute distress. HEENT: No acute trauma, normocephalic atraumatic, mucous membranes moist, mild nasal congestion. NECK: No stridor, no adenopathy, no meningismus, trachea is midline. LUNGS: Clear to auscultation bilaterally, no wheeze, no rhonchi, breath sounds equal. Dry cough noted. HEART: Without murmurs gallops or rubs, regular rate and rhythm. ABDOMEN: Soft, nontender, no peritonitis. EXTREMITIES: No cyanosis, full range of motion of all the joints without pain or difficulty. NEUROLOGIC: Oriented x 3, no acute motor or sensory deficits, no focal weakness. SKIN: No jaundice, no diaphoresis. DIFFERENTIAL DIAGNOSIS: Foodborne or viral illness, dehydration, aspiration, reflux, renal or liver failure, UTI, among others. EMERGENCY DEPARTMENT PROCEDURES: MEDICAL DECISION MAKING: There is a moderate leukocytosis, this could be consistent with infection or just her vomiting and diarrhea. There was a normal hemoglobin and platelet count. There was some mild acute kidney injury with a creatinine of 1.29. No electrolyte abnormality in need of emergent correction. No concerning liver enzyme elevation. testing was negative. ECG showed a normal sinus rhythm, no ischemia or dysrhythmia. Cardiac enzyme testing x 1 was not consistent with acute cardiac injury. Urinalysis showed some blood and contamination, no obvious infection. Respiratory bio fire was negative. Chest film did not show pneumonia or CHF. Brain CT showed no acute bleed or mass effect. Stool bio fire is pending. Patient was given IV Zofran. She received 1 L of IV saline, 1 L of lactated Ringer's. Additional IV saline was given, 500 cc. She required additional nausea control with doses of IV Zofran and IV Phenergan. She was given IV Pepcid and IV Protonix. She received albuterol via MDI. Despite the multiple doses of different nausea medications, the patient is still nauseated and not able to tolerate oral intake. With her presentation, with the syncope, with the concerns for potential aspiration, with the acute kidney injury, hospitalization is indicated. I spoke with the patient and case management, the on-call hospitalist was consulted. I suspect the patient's illness is viral. Her whole family has had similar vomiting and diarrhea complaints. Prior/Outside records/notes reviewed: ED visit note from 11/23/2021 discussing her abdominal pain and findings of colitis. ECG per my interpretation: Indication was syncope. The ECG shows a normal sinus rhythm with a rate of 85. There is no ST elevation, no PVCs. The QTc is 452. Continuous Cardiac Monitoring per my interpretation: An order was placed for continuous cardiac monitoring. The monitor shows a rate of 94 with normal sinus rhythm. Imaging/x-ray results per my interpretation: Chest x-ray does not show mediastinal widening, pneumonia or pneumothorax. Chronic Medical/Social conditions affecting care: Care/Management discussed with: Case management, the on-call hospitalist. Level of care consideration(s): After review of the information above and other included data: --I believe the patient requires escalation of care to admission DISPOSITION: Admission Past Med/Surg History Medical History Ovary removal, prophylactic Mild persistent asthma Seasonal allergies Abnormal biliary HIDA scan JOVAN (obstructive sleep apnea) Organic sleep disorder Major depression CKD (chronic kidney disease), stage II Eosinophilic esophagitis Hepatic cyst ANCA-associated vasculitis Globus sensation Hypertrophy of nasal turbinates Deviated nasal septum Hypothyroidism GERD (gastroesophageal reflux disease) H/O: HTN (hypertension) Surgical History (Updated 09/28/23 @ 12:11 by Samia Gonzales DO) Status post right oophorectomy Status post biopsy of kidney H/O cystoscopy H/O dilation and curettage History of hysteroscopy Family History (Updated 09/28/23 @ 11:01 by Samia Gonzales DO) Mother Thyroid disorder Father Diabetes Social History Smoking Status: Never smoker Do You Dip or Chew Tobacco: No; Hx Alcohol Use: No Hx Substance Use: No Preferred Language: Angolan Feels Safe at Home: Yes Allergies Allergies Allergy/AdvReac Type Severity Reaction Status Date / Time tetracycline AdvReac Intermediate STOMACH Verified 01/26/15 10:06 CRAMPS mushroom AdvReac Unknown ABDOMINAL Verified 02/02/15 06:09 PAIN onion AdvReac Unknown ABDOMINAL Verified 02/02/15 06:09 PAIN sulfamethoxazole AdvReac Unknown renal Verified 09/28/23 11:05 [From Bactrim] dysfunction trimethoprim [From Bactrim] AdvReac Unknown renal Verified 09/28/23 11:05 dysfunction AVACADO AdvReac Unknown ABDOMINAL Uncoded 01/26/15 10:06 PAIN Home Meds Home Medications Medication Instructions Recorded Confirmed fluticasone 250 mcg-salmeterol 50 1 inh inhalation BID 09/28/23 09/28/23 mcg/dose blistr powdr for inhalation (Advair Diskus) levothyroxine 75 mcg tablet 75 mcg PO DAILYBB 09/28/23 09/28/23 lisinopril 2.5 mg tablet 2.5 mg PO DAILY@1700 09/28/23 09/28/23 sertraline 100 mg tablet 150 mg PO QAM 09/28/23 09/28/23 sertraline 25 mg tablet 25 mg PO QAM 09/28/23 09/28/23 Results & Data (ED) Vital Signs Vital Signs - 24 hr 09/28/23 05:34 09/28/23 05:52 09/28/23 05:55 Temperature 36.5 C Temperature Source Oral Pulse Rate 98 H Pulse Rate [Apical] 81 Pulse Rate from SpO2 Sensor Pulse Rhythm [Apical] Respiratory Rate 16 13 Respiratory Effort / Characteristics Non-Labored Spontaneous Respiratory Depth Normal Normal Respiratory Pattern Regular Blood Pressure 124/79 Blood Pressure [Right Arm] 124/76 Blood Pressure Mean 94 Blood Pressure Mean [Right Arm] 92 Blood Pressure Position Sitting Pulse Oximetry 94 93 93 Oxygen Delivery Method Room Air Room Air Room Air Sepsis Recent Fever Within 48 Hours No Sepsis New/Unexplained Change in Mental Status N/A Sepsis Action Taken by Nursing No Action Required 09/28/23 05:58 09/28/23 06:28 09/28/23 07:00 Temperature Temperature Source Pulse Rate 89 93 H Pulse Rate [Apical] 94 H Pulse Rate from SpO2 Sensor 94 H Pulse Rhythm [Apical] Regular Respiratory Rate 16 19 Respiratory Effort / Characteristics Non-Labored Respiratory Depth Normal Respiratory Pattern Blood Pressure 112/88 Blood Pressure [Right Arm] 118/77 Blood Pressure Mean 96 Blood Pressure Mean [Right Arm] 90 Blood Pressure Position Pulse Oximetry 94 96 Oxygen Delivery Method Room Air Sepsis Recent Fever Within 48 Hours Sepsis New/Unexplained Change in Mental Status Sepsis Action Taken by Nursing 09/28/23 07:30 09/28/23 08:00 09/28/23 08:00 Temperature Temperature Source Pulse Rate 84 85 Pulse Rate [Apical] 92 H Pulse Rate from SpO2 Sensor 84 86 Pulse Rhythm [Apical] Regular Respiratory Rate 18 18 21 Respiratory Effort / Characteristics Non-Labored Respiratory Depth Normal Respiratory Pattern Regular Blood Pressure 114/75 122/70 Blood Pressure [Right Arm] 121/77 Blood Pressure Mean 88 87 Blood Pressure Mean [Right Arm] 91 Blood Pressure Position Pulse Oximetry 94 95 94 Oxygen Delivery Method Room Air Sepsis Recent Fever Within 48 Hours Sepsis New/Unexplained Change in Mental Status Sepsis Action Taken by Nursing 09/28/23 08:30 09/28/23 09:00 09/28/23 09:30 Temperature Temperature Source Pulse Rate 100 H 93 H 95 H Pulse Rate [Apical] Pulse Rate from SpO2 Sensor 99 H 95 H 94 H Pulse Rhythm [Apical] Respiratory Rate 18 21 21 Respiratory Effort / Characteristics Respiratory Depth Respiratory Pattern Blood Pressure 121/77 122/80 135/82 Blood Pressure [Right Arm] Blood Pressure Mean 91 94 99 Blood Pressure Mean [Right Arm] Blood Pressure Position Pulse Oximetry 95 97 97 Oxygen Delivery Method Sepsis Recent Fever Within 48 Hours Sepsis New/Unexplained Change in Mental Status Sepsis Action Taken by Nursing 09/28/23 10:00 09/28/23 10:00 09/28/23 10:31 Temperature Temperature Source Pulse Rate 110 H 108 H 106 H Pulse Rate [Apical] Pulse Rate from SpO2 Sensor Pulse Rhythm [Apical] Respiratory Rate 21 20 Respiratory Effort / Characteristics Respiratory Depth Respiratory Pattern Blood Pressure 115/88 131/81 Blood Pressure [Right Arm] Blood Pressure Mean 97 97 Blood Pressure Mean [Right Arm] Blood Pressure Position Pulse Oximetry Oxygen Delivery Method Sepsis Recent Fever Within 48 Hours Sepsis New/Unexplained Change in Mental Status Sepsis Action Taken by Alf Medications Current Medication List: was personally reviewed by me Laboratory Data Attestation: I reviewed the patient's lab results. 09/28/23 06:00 09/28/23 06:00 Lab Results 09/28/23 09/28/23 Range/Units 06:00 10:11 WBC 14.67 H (4.8-10.8) K/ul RBC 4.55 (4.20-5.40) M/uL Hgb 13.1 (12.0-16.0) g/dl Hct 39.3 (37.0-47.0) % MCV 86.4 (80.0-100.0) fL MCH 28.8 (25.0-34.0) pg MCHC 33.3 (32.0-36.0) g/dL RDW Std Deviation 41.1 (36.4-46.3) fL RDW Coeff of Mesfin 13.2 (11.5-14.5) % Plt Count 332 (130-400) K/uL MPV 10.5 (9.4-12.4) fL Immature Gran % (Auto) 0.5 % Neut % (Auto) 85.8 % Lymph % (Auto) 8.7 % Hunt % (Auto) 4.2 % Eos % (Auto) 0.6 % Baso % (Auto) 0.2 % Neut # (Auto) 12.57 H (1.40-6.50) K/uL Lymph # (Auto) 1.28 (1.20-3.40) K/uL Hunt # (Auto) 0.62 H (0.11-0.59) K/uL Eos # (Auto) 0.09 (0.00-0.50) K/uL Baso # (Auto) 0.03 (0.00-0.20) K/uL Immature Gran # (Auto) 0.08 (0.01-0.20) K/uL Sodium 137 (136-145) mmol/L Potassium 3.9 (3.5-5.1) mmol/L Chloride 100 (98-107) mmol/L Carbon Dioxide 28 (21-32) mmol/L Anion Gap 9 (3-11) BUN 27 H (6-23) mg/dl Creatinine 1.29 H (0.6-1.2) mg/dl Est Cr Clr Drug Dosing 57.5 ml/min Est GFR ( Amer) 56.7 ml/min Est GFR (Non-Af Amer) 48.9 ml/min BUN/Creatinine Ratio 20.9 H (10-20) Glucose 195 H (70-99(Fasting)) mg/dl Calcium 9.5 (8.6-10.3) mg/dl Magnesium 1.8 (1.7-2.4) mg/dl Total Bilirubin 0.5 (0.2-1.0) mg/dl AST 14 (13-39) U/L ALT 12 (7-52) U/L Alkaline Phosphatase 98 (34-104) U/L Troponin I High Sens 3.5 (0-14) pg/ml Total Protein 7.5 (6.0-8.3) gm/dl Albumin 4.1 (3.4-5.0) gm/dl Globulin 3.4 (2.5-4.0) gm/dl Albumin/Globulin Ratio 1.2 (0.9-2) HCG, Qual Negative (Negative) Urine Color Yellow Urine Appearance Clear (Clear) Urine pH 7.5 (4.5-7.5) Ur Specific Magazine 1.013 (1.000-1.030) Urine Protein 2+ H (Negative) Urine Glucose (UA) Negative (Negative) Urine Ketones Negative (Negative) Urine Blood 3+ H (Negative) Urine Nitrite Negative (Negative) Urine Bilirubin Negative (Negative) Urine Urobilinogen Negative (Negative) Ur Leukocyte Esterase 1+ H (Negative) Urine WBC (Auto) 10-30 H (0-5) /hpf Urine RBC (Auto) >30 H (0-4) /hpf U Hyaline Cast (Auto) 0 (0-5) /lpf U Epithel Cells (Auto) >30 H (0-5) /lpf Urine Bacteria (Auto) Negative (Negative) Adenovirus (PCR) Not Detected (NotDetected) B. pertussis DNA (PCR) Not Detected (NotDetected) B.parapertussis DNA PCR Not Detected (NotDetected) C. pneumoniae DNA (PCR) Not Detected (NotDetected) Coronavirus OC43 (PCR) Not Detected (NotDetected) Coronavirus HKU1 (PCR) Not Detected (NotDetected) Coronavirus 229E (PCR) Not Detected (NotDetected) SARS-CoV-2 (PCR) Not Detected (NotDetected) Coronavirus NL63 (PCR) Not Detected (NotDetected) Human Metapneumovir PCR Not Detected (NotDetected) Influenza Type A (PCR) Not Detected (NotDetected) Influenza Type B (PCR) Not Detected (NotDetected) M. pneumoniae (PCR) Not Detected (NotDetected) Parainfluenza 1 (PCR) Not Detected (NotDetected) Parainfluenza 2 (PCR) Not Detected (NotDetected) Parainfluenza 3 (PCR) Not Detected (NotDetected) Parainfluenza 4 (PCR) Not Detected (NotDetected) RSV (PCR) Not Detected (NotDetected) Entero/Rhino (PCR) Not Detected (NotDetected) Administered Medications Albuterol (Albuterol 0.5% Neb Soln 2.5 Mg/0.5 Ml Vial) 2.5 mg NEB Q6R SILAS; Protocol Stop: 10/28/23 12:59 Last Admin: 09/28/23 12:30 Dose: Not Given Documented By: UZIEL Discontinued Medications Albuterol (Albuterol Hfa 8 Gm Inhaler) 2 puffs INH NOW ONE Stop: 09/28/23 08:44 Last Admin: 09/28/23 09:06 Dose: 2 puffs Documented By: ISA Albuterol (Albuterol 0.083% Nebu Soln 3 Ml Vial) Confirm Administered Dose 2.5 mg .ROUTE .STK-MED ONE Stop: 09/28/23 12:26 Last Admin: 09/28/23 12:31 Dose: 2.5 mg Documented By: UZIEL Sodium Chloride (Nss) 1,000 mls @ 999 mls/hr IV .Q1H1M SILAS Stop: 09/28/23 07:00 Last Infusion: 09/28/23 08:33 Dose: Infused Documented By: Admin: 09/28/23 05:57 Dose: 999 mls/hr Documented By: [place] Famotidine (Pepcid 20mg Iv Push) 20 mg in 5 mls @ 2.5 mls/min IV NOW STA Stop: 09/28/23 06:42 Last Admin: 09/28/23 07:48 Dose: 2.5 mls/min Documented By: ISA Pantoprazole Sodium 40 mg/ (Syringe) 10 mls @ 5 mls/min IV NOW ONE Stop: 09/28/23 06:42 Last Admin: 09/28/23 07:48 Dose: 5 mls/min Documented By: ISA Lactated Ringer's (Lr) 1,000 mls @ 999 mls/hr IV .Q1H1M ONE Stop: 09/28/23 07:42 Last Infusion: 09/28/23 10:12 Dose: Infused Documented By: Admin: 09/28/23 07:51 Dose: 999 mls/hr Documented By: ISA Promethazine HCl (Phenergan) 6.25 mg in 50.25 mls @ 201 mls/hr IV NOW STA Stop: 09/28/23 09:07 Last Infusion: 09/28/23 09:25 Dose: Infused Documented By: Admin: 09/28/23 09:06 Dose: 201 mls/hr Documented By: ISA Promethazine HCl (Phenergan) 6.25 mg in 50.25 mls @ 201 mls/hr IV NOW STA Stop: 09/28/23 10:18 Last Infusion: 09/28/23 11:51 Dose: Infused Documented By: Admin: 09/28/23 11:31 Dose: 201 mls/hr Documented By: AUDREY Sodium Chloride (Nss) 500 mls @ 999 mls/hr IV .Q31M ONE Stop: 09/28/23 10:46 Last Infusion: 09/28/23 13:23 Dose: Infused Documented By: Admin: 09/28/23 11:35 Dose: 999 mls/hr Documented By: AUDREY Ondansetron HCl (Ondansetron Inj 2 Mg/Ml 2 Ml Vial) 4 mg IV NOW STA Stop: 09/28/23 05:53 Last Admin: 09/28/23 05:57 Dose: 4 mg Documented By: [place] Ondansetron HCl (Ondansetron Inj 2 Mg/Ml 2 Ml Vial) 4 mg IV NOW STA Stop: 09/28/23 08:54 Last Admin: 09/28/23 09:06 Dose: 4 mg Documented By: ISA Imaging Data Radiologist's Impression: Chest X-Ray 09/28/23 05:52 XR chest 1V portable CLINICAL HISTORY: Syncope. Possible aspiration. COMPARISON STUDY: Chest radiograph January 25, 2014. FINDINGS: Lung volumes are normal. Lungs are clear. There is no pneumothorax or pleural effusion. Cardiac size is normal. Mediastinal contours are normal. There is no evidence for pulmonary edema. IMPRESSION: No acute cardiopulmonary findings. ACT 112: Negative or not required by law. Electronically signed by: Husam Arevalo M.D. 09/28/2023 9:[address] 09/28/23 06:47 CT OF THE HEAD WITHOUT CONTRAST CLINICAL HISTORY: fall, syncope, headache COMPARISON STUDY: Head CT January 25, 2014. CT DOSE: 547.75 mGy.cm TECHNIQUE: Helical axial images of the head were obtained without IV contrast. Automated exposure control was utilized for the study. A dose lowering technique was utilized adhering to the principles of ALARA. FINDINGS: No acute intracranial hemorrhage, midline shift or mass effect is present. The ventricular system is unremarkable. The basal cisterns are patent. No extra-axial collections are present. There are no findings to suggest acute dural sinus thrombosis or acute territorial infarct. No significant calvarial abnormalities are present. Visualized portions of the sinuses and mastoid air cells are clear. IMPRESSION: 1. No acute intracranial findings. 2. No calvarial fracture. ACT 112: Negative or not required by law. Electronically signed by: Husam Arevalo M.D. 09/28/2023 7:56 AM Discharge Plan Visit Data Chief Complaint: Fall Stated Complaint: illness ED Provider: Matt Tafoya Discharge Problem: Syncope, LOU (acute kidney injury), Vomiting and diarrhea, Cough Patient Disposition: Admitted As Inpatient Condition: Fair Discharge Instructions Interventions: ED Discharge Assessment Last Done: 09/28/23 11:41 Discharge Problem: Syncope Qualifiers: Syncope type: unspecified Qualified Code(s): R55 - Syncope and collapse Cough Qualifiers: Cough type: acute Qualified Code(s): R05.1 - Acute cough
[2023-09-28 07:48] LABS: Adenovirus PCR Not Detected (NotDetected); Bordetella parapertussis PCR Not Detected (NotDetected); Bordetella pertussis PCR Not Detected (NotDetected); Chlamydia pneumoniae PCR Not Detected (NotDetected); Coronavirus 229E PCR Not Detected (NotDetected); Coronavirus CoV-2 (COVID19)PCR Not Detected (NotDetected); Coronavirus HKU1 PCR Not Detected (NotDetected); Coronavirus NL63 PCR Not Detected (NotDetected); Coronavirus OC43PCR Not Detected (NotDetected); Human Metapneumovirus PCR Not Detected (NotDetected); Influenza A PCR Not Detected (NotDetected); Influenza B PCR Not Detected (NotDetected); Mycoplasma pneumoniae PCR Not Detected (NotDetected); Parainfluenza Virus 1 PCR Not Detected (NotDetected); Parainfluenza Virus 2 PCR Not Detected (NotDetected); Parainfluenza Virus 3 PCR Not Detected (NotDetected); Parainfluenza Virus 4 PCR Not Detected (NotDetected); Respiratory Syncytial VirusPCR Not Detected (NotDetected); Rhinovirus/Enterovirus PCR Not Detected (NotDetected)
--- NOTE | 2023-09-28 07:58 | CT Scan Report ---
CT OF THE HEAD WITHOUT CONTRAST CLINICAL HISTORY: fall, syncope, headache COMPARISON STUDY: Head CT January 25, 2014. CT DOSE: 547.75 mGy.cm TECHNIQUE: Helical axial images of the head were obtained without IV contrast. Automated exposure con trol was utilized for the study. A dose lowering technique was utilized adhering to the principles o f ALARA. FINDINGS: No acute intracranial hemorrhage, midline shift or mass effect is present. The ventricular system is unremarkable. The basal cisterns are patent. No extra-axial collections are present. There are no findings to suggest acute dural sinus thrombosis or acute territorial infarct. No significant calvarial abnormalities are present. Visualized portions of the sinuses and mastoid air cells are librado ar. IMPRESSION: 1. No acute intracranial findings. 2. No calvarial fracture. ACT 112: Negative or not required by law. Electronically signed by: Husam Arevalo M.D. 09/28/2023 7:56 AM
[2023-09-28] MEDS ORDERED: ALBUTEROL HFA 8 GM INHALER INH ONE (08:43)
[2023-09-28] MEDS ORDERED: PROMETHAZINE 6.25 MG/50.25 ML BAG IV STA ×2 (08:53→10:04)
--- NOTE | 2023-09-28 09:12 | XRay Report ---
XR chest 1V portable CLINICAL HISTORY: Syncope. Possible aspiration. COMPARISON STUDY: Chest radiograph January 25, 2014. FINDINGS: Lung volumes are normal. Lungs are clear. There is no pneumothorax or pleural effusion. Car diac size is normal. Mediastinal contours are normal. There is no evidence for pulmonary edema. IMPRESSION: No acute cardiopulmonary findings. ACT 112: Negative or not required by law. Electronically signed by: Husam Arevalo M.D. 09/28/2023 9:10 AM
[2023-09-28] MEDS ORDERED: SODIUM CHLORIDE 0.9% 500 ML IV ONE (10:16)
[2023-09-28 10:24] LABS: Appearance Urine Clear (Clear); Bacteria Urine Automated Negative (Negative); Bilirubin Urine Negative (Negative); Blood Urine 3+ (Negative); Cast Urine Automated 0 /lpf (0-5); Color Urine Yellow; Epithelial Cell Urine Auto >30 /lpf (0-5); Glucose Urine UA Negative (Negative); Ketones Urine Negative (Negative); Leukocyte Esterase Urine 1+ (Negative); Nitrite Urine Negative (Negative); RBC Urine Automated >30 /hpf (0-4); Specific Gravity Urine 1.013 (1.000-1.030); Urobilinogen Urine Negative (Negative); pH Urine 7.5 (4.5-7.5)
[2023-09-28 10:28] LABS: Protein Urine 2+ (Negative)
--- NOTE | 2023-09-28 11:04 | History & Physical Report ---
Date of Service September 28, 2023 Assessment & Plan (1) Intractable nausea and vomiting: Plan: Likely viral given these symptoms started from her son who got his GI illness from a fmily gathering. Cont supportive care efforts. She is not vomiting blood. Diarrhea started this morning. Will obtain stool culture today if she can provide a sample. Antiemetics, cont IVF. Coughing from vomiting with some wheezing in anterior lung duenas present. Given h/o asthma, starting supportive albuterol neb x 24 hours, cough syrup and nasal saline as a lavage. Cont home Advair. (2) Diarrhea: Plan: Plan as above. No need for anti-diarrheals at this point. (3) Syncope and collapse: Plan: Situational while vomiting. She possibly hit her head on her bedside dresser. CT head negative, not on blood thinners. Declines pain medication need at this time. No indication for echo at this time. No chest pain--no trop. EKG is nor mal. Cont monitoring on telemetry. 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 Crowder. Also CKD Stage II. Mildly elevated creatinine to 1.3 this am likely resulting from acute illness in setting of chronic disease. Cont with IVF today and repeat BMP in am. (5) Major depression: Plan: chronic, stable. Cont sertraline per home regimen. (6) Hypothyroidism: Plan: chronic, stable. Cont Synthroid per home regimen. I spent a total of 60minutes coordinating, documenting, and providing care for this patient excluding time spent in the performance of separately billed services Samia Gonzales DO [facility] Hospitalist History of Present Illness Chief Complaint: fall Primary Care Provider: Lowell Christine MD 48-year-old female with a history of hypothyroidism, obstructive sleep apnea, mild persistent asthma, ANCA associated vasculitis, eosinophilic esophagitis, CKD stage II, depression, restless leg syndrome, sleep disorder presents after a fall. She reports excessive nausea vomiting and diarrhea with known sick contacts in her home who have similar symptoms. She was having excessive vomiting this morning and passed out on the edge of her bed waking up on the floor. She has burning in her nose and is coughing after issues with vomiting this morning. Fell into her dresser this am, vomit was on the floor Diarrhea started this am, vomiting began last night last thing she ate was last pm 11pm, potato skins and chix wings no fevers, +chills today chronic epigastric abdominal pain described as dull-has had this for a while- ongoing for 8 months, no worse with this issue overnight. 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 Followed by nephrology [facility] Allergies Allergy/AdvReac Type Severity Reaction Status Date / Time tetracycline AdvReac Intermediate STOMACH Verified 01/26/15 10:06 CRAMPS mushroom AdvReac Unknown ABDOMINAL Verified 02/02/15 06:09 PAIN onion AdvReac Unknown ABDOMINAL Verified 02/02/15 06:09 PAIN sulfamethoxazole AdvReac Unknown renal Verified 09/28/23 11:05 [From Bactrim] dysfunction trimethoprim [From Bactrim] AdvReac Unknown renal Verified 09/28/23 11:05 dysfunction AVACADO AdvReac Unknown ABDOMINAL Uncoded 01/26/15 10:06 PAIN Home Medications Medication Instructions Recorded Confirmed Type fluticasone 250 mcg-salmeterol 50 1 inh inhalation BID 09/28/23 09/28/23 History mcg/dose blistr powdr for inhalation (Advair Diskus) levothyroxine 75 mcg tablet 75 mcg PO DAILYBB 09/28/23 09/28/23 History lisinopril 2.5 mg tablet 2.5 mg PO DAILY@1700 09/28/23 09/28/23 History sertraline 100 mg tablet 150 mg PO QAM 09/28/23 09/28/23 History sertraline 25 mg tablet 25 mg PO QAM 09/28/23 09/28/23 History Past Med/Surg History Medical History Ovary removal, prophylactic Mild persistent asthma Seasonal allergies Abnormal biliary HIDA scan JOVAN (obstructive sleep apnea) Organic sleep disorder Major depression CKD (chronic kidney disease), stage II Eosinophilic esophagitis Hepatic cyst ANCA-associated vasculitis Globus sensation Hypertrophy of nasal turbinates Deviated nasal septum Hypothyroidism GERD (gastroesophageal reflux disease) H/O: HTN (hypertension) Surgical History Status post right oophorectomy Status post biopsy of kidney H/O cystoscopy H/O dilation and curettage History of hysteroscopy Family History Mother Thyroid disorder Father Diabetes Social History Smoking Status: Never smoker Do You Dip or Chew Tobacco: No; Hx Alcohol Use: No Hx Substance Use: No Preferred Language: Amharic Feels Safe at Home: Yes Physical Exam Physical Exam: CONSTITUTIONAL: WNWD, vitals as above, ill appearing, NAD EYES: normal conjunctivae, no scleral icterus ENT: external ear and nose normal, oropharynx clear, MMM NECK: trachea midline RESPIRATORY: clear to auscultation bilaterally in posterior duenas, wheezing present in anterior duenas bilaterally, no crackles or rales, normal respiratory effort CARDIOVASCULAR: regular rate and rhythm, S1 and 2 heard without murmurs, gallops or rubs, no JVD, no peripheral edema CHEST: inspection of chest was normal GASTROINTESTINAL: soft, nontender, ND, no guarding MUSCULOSKELETAL: strength 5/5 throughout, head is normocephalic and atraumatic SKIN: warm and dry NEUROLOGIC: CN 2-12 grossly intact, no sensory deficit, normal cognition, normal speech, no tremor PSYCHIATRIC: alert cooperative and oriented to person, place and time. Euthymic mood, makes good eye contact, language grossly intact, recent and remote memory grossly intact. Results & Data Results & Data Vital Signs (Past 12 Hours) Vital Signs Temp Pulse Pulse Resp BP BP Pulse Ox 09/28/23 10:00 110 H 09/28/23 09:00 93 H 21 122/80 97 09/28/23 08:30 100 H 18 121/77 95 09/28/23 08:00 85 21 122/70 94 09/28/23 08:00 92 H 18 121/77 95 09/28/23 07:30 84 18 114/75 94 09/28/23 07:00 93 H 19 112/88 96 09/28/23 06:28 94 H 16 118/77 94 09/28/23 05:58 89 09/28/23 05:55 93 09/28/23 05:52 81 13 124/76 93 09/28/23 05:34 36.5 C 98 H 16 124/79 94 O2 Del Method 09/28/23 10:00 09/28/23 09:00 09/28/23 08:30 09/28/23 08:00 09/28/23 08:00 Room Air 09/28/23 07:30 09/28/23 07:00 09/28/23 06:28 Room Air 09/28/23 05:58 09/28/23 05:55 Room Air 09/28/23 05:52 Room Air 09/28/23 05:34 Room Air Laboratory Results Short CBC 09/28/23 Range/Units 06:00 WBC 14.67 H (4.8-10.8) K/ul Hgb 13.1 (12.0-16.0) g/dl Hct 39.3 (37.0-47.0) % Plt Count 332 (130-400) K/uL BMP 09/28/23 06:00 Sodium 137 Potassium 3.9 Chloride 100 Carbon Dioxide 28 BUN 27 H Creatinine 1.29 H Glucose 195 H Calcium 9.5 Liver Function 09/28/23 Range/Units 06:00 Total Bilirubin 0.5 (0.2-1.0) mg/dl AST 14 (13-39) U/L ALT 12 (7-52) U/L Alkaline Phosphatase 98 (34-104) U/L Albumin 4.1 (3.4-5.0) gm/dl Urine 09/28/23 Range/Units 10:11 Urine Color Yellow Urine Appearance Clear (Clear) Urine pH 7.5 (4.5-7.5) Ur Specific Farrell 1.013 (1.000-1.030) Urine Protein 2+ H (Negative) Urine Glucose (UA) Negative (Negative) Diagnostic Findings Chest X-Ray 09/28/23 05:52 XR chest 1V portable CLINICAL HISTORY: Syncope. Possible aspiration. COMPARISON STUDY: Chest radiograph January 25, 2014. FINDINGS: Lung volumes are normal. Lungs are clear. There is no pneumothorax or pleural effusion. Cardiac size is normal. Mediastinal contours are normal. There is no evidence for pulmonary edema. IMPRESSION: No acute cardiopulmonary findings. ACT 112: Negative or not required by law. Electronically signed by: Husam Arevalo M.D. 09/28/2023 9:[address] 09/28/23 06:47 CT OF THE HEAD WITHOUT CONTRAST CLINICAL HISTORY: fall, syncope, headache COMPARISON STUDY: Head CT January 25, 2014. CT DOSE: 547.75 mGy.cm TECHNIQUE: Helical axial images of the head were obtained without IV contrast. Automated exposure control was utilized for the study. A dose lowering technique was utilized adhering to the principles of ALARA. FINDINGS: No acute intracranial hemorrhage, midline shift or mass effect is present. The ventricular system is unremarkable. The basal cisterns are patent. No extra-axial collections are present. There are no findings to suggest acute dural sinus thrombosis or acute territorial infarct. No significant calvarial abnormalities are present. Visualized portions of the sinuses and mastoid air cells are clear. IMPRESSION: 1. No acute intracranial findings. 2. No calvarial fracture. ACT 112: Negative or not required by law. Electronically signed by: Husam Arevalo M.D. 09/28/2023 7:56 AM Code Status & VTE Plan VTE Prophylaxis Plan VTE Prophylaxis will be ordered: Yes
[2023-09-28] MEDS ORDERED: ACETAMINOPHEN 325 MG TAB PO PRN (11:47)
[2023-09-28] MEDS ORDERED: SODIUM CHLORIDE 0.65% NA SOLN 45 ML (OCEAN) ONE (12:14)
[2023-09-28] MEDS ORDERED: SODIUM CHLORIDE 0.65% NA SOLN 45 ML (OCEAN) PRN (12:14)
[2023-09-28] MEDS ORDERED: ALBUTEROL 0.083% NEBU SOLN 3 ML VIAL ONE (12:25)
[2023-09-28] MEDS: ALBUTEROL 0.5% NEB SOLN 2.5 MG/0.5 ML VIAL NEB SCH ×2 (12:30→20:15)
--- NOTE | 2023-09-28 14:21 | Electrocardiogram Report ---
Test Reason : Blood Pressure : / mmHG Vent. Rate : 085 BPM Atrial Rate : 085 BPM P-R Int : 146 ms QRS Dur : 086 ms QT Int : 380 ms P-R-T Axes : 057 -08 030 degrees QTc Int : 452 ms Normal sinus rhythm Normal ECG When compared with ECG of 26-JAN-2015 11:06, Premature atrial complexes are no longer Present Vent. rate has increased BY 28 BPM Confirmed by Vel Ching ([id number]) on 09/28/2023 2:20:49 PM Referred By: Confirmed By:Vel Ching
[2023-09-28 14:27] LABS: Adenovirus F 40/41 PCR Not Detected (NotDetected); Astrovirus PCR Not Detected (NotDetected); Campylobacter PCR Not Detected (NotDetected); Cryptosporidium PCR Not Detected (NotDetected); Cyclospora cayetanensis PCR Not Detected (NotDetected); Entamoeba histolytica PCR Not Detected (NotDetected); Enteroaggregative E.coli(EAEC) Not Detected (NotDetected); Enteropathogenic E.coli (EPEC) Not Detected (NotDetected); Enterotoxigenic E.coli (ETEC) Not Detected (NotDetected); Giardia lamblia PCR Not Detected (NotDetected); Plesiomonas shigelloides PCR Not Detected (NotDetected); Rotavirus A PCR Not Detected (NotDetected); Salmonella PCR Not Detected (NotDetected); Sapovirus PCR Not Detected (NotDetected); Shiga-like Toxin E.coli (STEC) Not Detected (NotDetected); Shigella/Enteroinvasive E.coli Not Detected (NotDetected); Vibrio cholerae PCR Not Detected (NotDetected); Vibrio species PCR Not Detected (NotDetected); Yersinia enterocolitica PCR Not Detected (NotDetected)
[2023-09-28 14:31] LABS: Norovirus GI/GII PCR DETECTED (NotDetected)
[2023-09-28] MEDS: FLUTICASONE/VILANTEROL 200/25MCG 14 PUFFS/INHALER INH SCH (15:36)
[2023-09-29] MEDS: ALBUTEROL 0.5% NEB SOLN 2.5 MG/0.5 ML VIAL NEB SCH ×2 (00:36→07:04)
[2023-09-29 03:38] LABS: Hematocrit (blood only) 34.4 % (37.0-47.0); Hemoglobin 11.1 g/dl (12.0-16.0); Mean Corpuscular Hemoglobin 28.3 pg (25.0-34.0); Mean Corpuscular Hgb Conc 32.3 g/dL (32.0-36.0); Mean Corpuscular Volume 87.8 fL (80.0-100.0); Mean Platelet Volume 10.1 fL (9.4-12.4); Platelet Count 190 K/uL (130-400); RDW Coefficient of Variation 13.6 % (11.5-14.5); RDW Standard Deviation 43.9 fL (36.4-46.3); Red Blood Count 3.92 M/uL (4.20-5.40); White Blood Count 7.91 K/ul (4.8-10.8)
[2023-09-29 03:55] LABS: BUN Creatinine Ratio 12.1 (10-20); Calcium 8.5 mg/dl (8.6-10.3); Creatinine Clr Calc Pharmacy 56.2 ml/min; Est GFR (African American) 55.2 ml/min; Est GFR (Non-African American) 47.6 ml/min; Magnesium 1.7 mg/dl (1.7-2.4); Phosphorus 3.5 mg/dl (2.5-4.9); Potassium 3.5 mmol/L (3.5-5.1)
[2023-09-29 04:10] LABS: Thyroid Stimulating Hormone 4.275 uIu/ml (0.300-4.500)
[2023-09-29] MEDS: LEVOTHYROXINE SODIUM 75 MCG TABLET PO SCH (06:36)
[2023-09-29] MEDS: FLUTICASONE/VILANTEROL 200/25MCG 14 PUFFS/INHALER INH SCH (07:48)
[2023-09-29] MEDS ORDERED: Nursing to Pharmacy Communication SCH (08:00)
[2023-09-29] MEDS ORDERED: SERTRALINE HCL 50 MG TABLET PO SCH ×4 (09:00→17:00)
[2023-09-29] MEDS ORDERED: ALBUTEROL 0.5% NEB SOLN 2.5 MG/0.5 ML VIAL NEB PRN (09:25)
[2023-09-29] MEDS ORDERED: LOPERAMIDE HCL 2 MG CAP PO PRN (14:20)
[2023-09-29] MEDS: SODIUM CHLORIDE 0.9% 1,000 ML IV SCH (14:50)
--- NOTE | 2023-09-29 15:05 | Hospitalist Progress Note ---
Date of Service September 29, 2023 Assessment & Plan (1) Norovirus: Plan: supportive care as outlined below. (2) Intractable nausea and vomiting: Plan: 2/2 norovirus. Symptoms of nausea have resolved but she is still unable to tolerate solid food. Diarrhea is ongoing. Cont supportive care efforts. IVF x 2 bags additional overnight. Coughing from vomiting with some wheezing in anterior lung duenas present after vomiting. Significantly improved after scheduled nebs and nasal saline. Cont home Advair. (3) Vasovagal syncope: Plan: 2/2 vomiting. No further workup required. 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 Crowder. Also CKD Stage II. Mildly elevated creatinine to 1.3 this am likely resulting from acute illness in setting of chronic disease, stable around 1.3 but is now reporting hematuria that is concerning her. She has also had hematuria in recent months as outpatient. Consulting nephrology. 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 Crowder. Also CKD Stage II. Mildly elevated creatinine to 1.3 this am likely resulting from acute illness in setting of chronic disease. Cont with IVF today and repeat BMP in am. (6) Major depression: Plan: chronic, stable. Cont sertraline per home regimen. (7) Hypothyroidism: Plan: chronic, stable. Cont Synthroid per home regimen. DVT proph: SCDs/ambulation, hold on chemoprophy in setting of gross hematuria. Full Code Dispo- likely to home in am as long as tolerating diet and clinically improved. Samia Gonzales DO [facility] Hospitalist Admission and Anticipated Discharge Date Admission Date: September 28, 2023 Physical Exam Physical Exam: CONSTITUTIONAL: WNWD, vitals as above, ill appearing, NAD EYES: normal conjunctivae, no scleral icterus ENT: external ear and nose normal, oropharynx clear, MMM NECK: trachea midline RESPIRATORY: clear to auscultation bilaterally in posterior duenas, wheezing present in anterior duenas bilaterally, no crackles or rales, normal respiratory effort CARDIOVASCULAR: regular rate and rhythm, S1 and 2 heard without murmurs, gallops or rubs, no JVD, no peripheral edema CHEST: inspection of chest was normal GASTROINTESTINAL: soft, nontender, ND, no guarding MUSCULOSKELETAL: strength 5/5 throughout, head is normocephalic and atraumatic SKIN: warm and dry NEUROLOGIC: CN 2-12 grossly intact, no sensory deficit, normal cognition, normal speech, no tremor PSYCHIATRIC: alert cooperative and oriented to person, place and time. Euthymic mood, makes good eye contact, language grossly intact, recent and remote memory grossly intact. Results & Data Results & Data Vital Signs (Past 12 Hours) Vital Signs Temp Pulse Pulse Resp BP Pulse Ox O2 Del Method 09/29/23 12:20 101 H 18 96 Room Air 09/29/23 12:00 36.8 C 104 H 18 119/85 95 Room Air 09/29/23 07:53 109 H 09/29/23 07:45 98 H 18 134/78 93 Room Air 09/29/23 07:05 85 18 97 Nasal Cannula O2 Flow Rate 09/29/23 12:20 09/29/23 12:00 09/29/23 07:53 09/29/23 07:45 09/29/23 07:05 1 Laboratory Results Short CBC 09/29/23 Range/Units 03:23 WBC 7.91 (4.8-10.8) K/ul Hgb 11.1 L (12.0-16.0) g/dl Hct 34.4 L (37.0-47.0) % Plt Count 190 (130-400) K/uL BMP 09/29/23 03:23 Sodium 140 Potassium 3.5 Chloride 105 Carbon Dioxide 28 BUN 16 Creatinine 1.32 H Glucose 108 H Calcium 8.5 L Medications Administered Current Inpatient Medications Acetaminophen (Acetaminophen 325 Mg Tab) 650 mg PO Q4H PRN PRN Reason: Pain or Fever Stop: 10/28/23 11:46 Albuterol (Albuterol 0.5% Neb Soln 2.5 Mg/0.5 Ml Vial) 2.5 mg NEB Q6R PRN; Protocol PRN Reason: sob/wheezing Stop: 10/28/23 12:59 Last Admin: 09/29/23 12:20 Dose: 2.5 mg Fluticasone/Vilanterol (Fluticasone/Vilanterol 200/25mcg 14 Puffs/Inhaler) 1 puffs INH DAILY SILAS Stop: 10/28/23 12:29 Last Admin: 09/29/23 07:48 Dose: 1 puffs Guaifenesin/Codeine Phosphate (Guaifenesin/Codeine 200mg/20mg 10ml Udc) 10 ml PO Q6H PRN PRN Reason: Cough Stop: 10/28/23 12:13 Sodium Chloride (Nss) 1,000 mls @ 125 mls/hr IV .Q8H [facility] Stop: 09/30/23 06:29 Last Admin: 09/29/23 14:50 Dose: 125 mls/hr Levothyroxine Sodium (Levothyroxine Sodium 75 Mcg Tablet) 75 mcg PO DAILYBB [facility] Stop: 10/29/23 06:29 Last Admin: 09/29/23 06:36 Dose: 75 mcg Loperamide HCl (Loperamide Hcl 2 Mg Cap) 2 mg PO UD PRN PRN Reason: diarrhea Stop: 10/29/23 14:19 Sertraline HCl (Sertraline Hcl 50 Mg Tablet) 25 mg PO DAILY@1700 [facility] Stop: 10/29/23 16:59 Sertraline HCl (Sertraline Hcl 50 Mg Tablet) 150 mg PO DAILY@1700 [facility] Stop: 10/29/23 16:59 Sodium Chloride (Sodium Chloride 0.65% Na Soln 45 Ml ([place])) 2 sprays NA Q4H PRN PRN Reason: nasal irritation Stop: 10/28/23 12:13
--- NOTE | 2023-09-29 15:51 | Nephrology Consultation ---
Date of Consultation September 29, 2023 Assessment & Plan (1) Worsening renal function: subacute changes in her renal function which w/ creatinine 1.3-1.4 is stable over the past 6-7 weeks w/ recurrent gross and microhematuria and as of spring 2022 w/ worsening albuminuria. while her renal status is changed/worse compared to 9-12 mos back, no evidence at this time that she is acutely decompensating from a renal standpoint. no worsened renal function despite acute illness. -continue NS 2L and other supportive care -if she stays past midday tomorrow, we can draw ANCA panel here; not drawing now b/c takes literally a week or more for some of the tests on that panel to post; if she is d/c before midday tomorrow, can stop at [facility] lab and have ANCA panel drawn there w/ turnaround time of 48-72 hours; ANCA panel includes complement, AMANDA, anti GBM, ANCA Abs -recommend hospital D/C visit w/ Dr Crowder within 10 days of hospital d/c w/ repeat bmp and ACR and uacm to be drawn at that time and ordered by nephro nurse -may ultimately need repeat renal bx or other supportive care but at this time no urgent bx needed -daily bmp while in house Care coordinated w/ Dr Gonzales (2) Hematuria: now the second episode of gross hematuria in 6-7 weeks. ANCA w/u as above History of Present Illness Reason for Consultation: new hematuria, CKD2, hx of ANCA vasculitis Requesting Physician: Dr Gonzaels Attending Physician: Samia Gonzales, DO History of Present Illness 48 y/o F whom I"m asked to see for gross hematuria in the setting of hx of ANCA vasculitis is under hospital observation after presenting w/ intractable N/V in the setting of Norovirus. Started w/ diarrhea shortly before presentation. PMH includes hypothyroid, JOVAN, eosinophilic esophagitis, asthma, remote ANCA vasculitis in 2011 s/p cytoxan and imuran therapy w/ good response. Follows w/ Dr Crowder in CKD clinic, last seen spring 2022 for annual follow up. noted recently to have slight uptick in creatinine as OP from 1.0-1.1 in spring 2022 to 1.3-1.4 in July and August 2023. Also proteinuria from 250 mg to about 800 mg daily and microhematuria recurring on July labs. These labs were done b/c pt had about a week of gross hematuria at that time. Repeat of OP ANCA panel and complement levels was planned but not yet done. On presentation here yesterday, creatinine 1.3, no change today. She is tolerating clears and feels much improved compared to yesterday though still more comfortable after breathing treatment and w/ IV fluid. Had recurrent gross hematuria yesterday PM. some wheezing and cough productive of frothy sputum. no other evidence of bleeding in bm or emesis or phlegm. no other worrisome voiding sx. no F; no joint pain; no rash. Allergies Allergy/AdvReac Type Severity Reaction Status Date / Time tetracycline AdvReac Intermediate STOMACH Verified 01/26/15 10:06 CRAMPS avocado AdvReac Unknown Abdominal Verified 09/29/23 14:23 Pain mushroom AdvReac Unknown ABDOMINAL Verified 02/02/15 06:09 PAIN onion AdvReac Unknown ABDOMINAL Verified 02/02/15 06:09 PAIN sulfamethoxazole AdvReac Unknown renal Verified 09/28/23 11:05 [From Bactrim] dysfunction trimethoprim [From Bactrim] AdvReac Unknown renal Verified 09/28/23 11:05 dysfunction Home Medications Medication Instructions Recorded Confirmed Type fluticasone 250 mcg-salmeterol 50 1 inh inhalation BID 09/28/23 09/28/23 History mcg/dose blistr powdr for inhalation (Advair Diskus) levothyroxine 75 mcg tablet 75 mcg PO DAILYBB 09/28/23 09/28/23 History lisinopril 2.5 mg tablet 2.5 mg PO DAILY@1700 09/28/23 09/28/23 History sertraline 100 mg tablet 150 mg PO QAM 09/28/23 09/28/23 History sertraline 25 mg tablet 25 mg PO QAM 09/28/23 09/28/23 History Patient History Medical History Ovary removal, prophylactic Mild persistent asthma Seasonal allergies Abnormal biliary HIDA scan JOVAN (obstructive sleep apnea) Organic sleep disorder Major depression CKD (chronic kidney disease), stage II Eosinophilic esophagitis Hepatic cyst ANCA-associated vasculitis Globus sensation Hypertrophy of nasal turbinates Deviated nasal septum Hypothyroidism GERD (gastroesophageal reflux disease) H/O: HTN (hypertension) Surgical History Status post right oophorectomy Status post biopsy of kidney H/O cystoscopy H/O dilation and curettage History of hysteroscopy Family History Mother Thyroid disorder Father Diabetes Social History Smoking Status: Never smoker Second Hand Exposure: No; Do You Dip or Chew Tobacco: No; Hx Alcohol Use: No Hx Substance Use: No Preferred Language: Korean Communication Ability: Effective Certified Alcohol Counselor Required: No Beliefs That Will Affect Care: None Current Living Situation: Spouse and Family Feels Safe at Home: Yes Safety Concerns: Feels Safe At This Time Assistive Devices: None Review of Systems 2 Review of Systems: All systems reviewed & are unremarkable except as noted in HPI & below Physical Exam 2 Constitutional: well developed, well nourished, + acute distress (tearful/emotional at talking about renal disease) and cooperative Eyes: EOM intact bilaterally ENMT: Ears: no external ear abnormality Nose: no external nose abnormality Mouth: + dry oral mucous membranes audible sinus congestion Neck: no nuchal rigidity Respiratory: normal respiratory effort Auscultation: + diminished lung sounds Cardiovascular: RRR, no murmur, no edema Gastrointestinal (Abdomen): Inspection/Auscultation: normal bowel sounds P ercussion/Palpation: abdomen soft; abdomen nontender Musculoskeletal: Extremities: strength 5/5 throughout Skin: no rashes, warm and dry Neurologic: malave, fluent speech, no tremor Psychiatric: Orientation: alert and oriented x 3 Results & Data Vital Signs (Past 12 Hours) Vital Signs Temp Pulse Pulse Resp BP Pulse Ox O2 Del Method 09/29/23 12:20 101 H 18 96 Room Air 09/29/23 12:00 36.8 C 104 H 18 119/85 95 Room Air 09/29/23 07:53 109 H 09/29/23 07:45 98 H 18 134/78 93 Room Air 09/29/23 07:05 85 18 97 Nasal Cannula O2 Flow Rate 09/29/23 12:20 09/29/23 12:00 09/29/23 07:53 09/29/23 07:45 09/29/23 07:05 1 Laboratory Results 09/29/23 03:23 09/29/23 03:23 UAs reviewed this admission
[2023-09-29] MEDS ORDERED: ONDANSETRON INJ 2 MG/ML 2 ML VIAL IV PRN (18:00)
[2023-09-30] MEDS: SODIUM CHLORIDE 0.9% 1,000 ML IV SCH (04:24)
[2023-09-30] MEDS: LEVOTHYROXINE SODIUM 75 MCG TABLET PO SCH (05:50)
[2023-09-30 06:35] LABS: BUN Creatinine Ratio 7.3 (10-20); Calcium 8.2 mg/dl (8.6-10.3); Creatinine Clr Calc Pharmacy 60.3 ml/min; Est GFR (African American) 60.1 ml/min; Est GFR (Non-African American) 51.8 ml/min; Magnesium 1.7 mg/dl (1.7-2.4); Phosphorus 2.4 mg/dl (2.5-4.9); Potassium 3.8 mmol/L (3.5-5.1)
[2023-09-30] MEDS: FLUTICASONE/VILANTEROL 200/25MCG 14 PUFFS/INHALER INH SCH (08:05)
--- NOTE | 2023-09-30 11:21 | Nephrology Progress Note ---
Date of Service September 30, 2023 Assessment & Plan (1) Worsening renal function: Plan: subacute changes in her renal function which w/ creatinine 1.3-1.4 is stable over the past 6-7 weeks w/ recurrent gross and microhematuria and as of spring 2022 w/ worsening albuminuria. while her renal status is changed/worse compared to 9-12 mos back, no evidence at this time that she is acutely decompensating from a renal standpoint. no acutely worsened renal function despite acute illness. has recovered from norovirus significantly though still on the mend. mild RUQ pain but transaminases wnl 36 hrs ago >appropriate to w/u gross hematuria as OP as below; no urgent /emergent bx needed -not drawing ANCA w/u in house b/c takes literally a week or more for some of the tests on that panel to post; she can stop at [facility] lab and have ANCA panel drawn there w/ turnaround time of 48-72 hours; ANCA panel includes complement, AMANDA, anti GBM, ANCA Abs -may ultimately need repeat renal bx or other supportive care but at this time no urgent bx needed NEPHROLOGY D/C RECOMMENDATIONS -OK to resume lisinopril and other OP medications -pt tells me she has appt w/ Dr Crowder next week which she should keep >recommend ALSO UACM, ACR, cmp, hgb, transferrin saturation to be ordered by renal nurse for up to 48 hrs before OV w/ nephro next week - our office will send her [facility] mssg to make her aware of labs -has labs already ordered as OP to be drawn to evaluate ANCA and should get those later today -renal nurse is already aware of above labs and is placing orders -if she has worsening dyspnea, hemoptysis, new dysuria or flank pain, rash, fever, or other worsening status needs immediate ER evaluation for renal function testing and consideration of urgent renal interventions Care coordinated w/ Dr Gerard Gandhi spent a total of 70 minutes coordinating, documenting, and providing care for this patient excluding time spent in the performance of separately billed services. This included personally reviewing all current laboratories and imaging studies, medication reconciliation, outpatient chart review, and discussion with other physicians, with nursing, and as applicable with the patient and family. (2) Hematuria: Plan: now the second episode of gross hematuria in 6-7 weeks. ANCA w/u as above Admission and Anticipated Discharge Date Admission Date: September 28, 2023 Subjective still weak and woozy but tolerating po. ongoing gross hematuria w/o dysuria or flank pain or urgency. does c/o some RUQ discomfort started w/ hematuria. no sob, no rash, no hemoptysis, no edema Review of Systems 2 Review of Systems: All systems reviewed & are unremarkable except as noted in Subjective Physical Exam 2 Constitutional: well developed, well nourished and cooperative; no acute distress Eyes: EOM intact bilaterally ENMT: Ears: no external ear abnormality Nose: no external nose abnormality Mouth: + dry oral mucous membranes Neck: no nuchal rigidity Respiratory: normal respiratory effort Auscultation: + diminished lung sounds Cardiovascular: RRR, no murmur, no edema Gastrointestinal (Abdomen): Inspection/Auscultation: normal bowel sounds P ercussion/Palpation: abdomen soft; abdomen nontender (except RUQ TT moderate palpation w/o guarding or rebound) Musculoskeletal: Extremities: strength 5/5 throughout Skin: no rashes, warm and dry Psychiatric: Orientation: alert and oriented x 3 Affect: euthymic affect and + anxious affect Results & Data Vital Signs (Past 12 Hours) Vital Signs Temp Pulse Pulse Pulse Resp BP Pulse Ox 09/30/23 08:14 36.7 C 75 16 131/73 95 09/30/23 07:44 100 H 09/30/23 04:37 37.2 C 79 20 150/77 H 93 09/30/23 00:41 36.8 C 88 20 115/77 94 O2 Del Method 09/30/23 08:14 Room Air 09/30/23 07:44 09/30/23 04:37 Room Air 09/30/23 00:41 Room Air Laboratory Results 09/29/23 03:23 09/30/23 05:54
[2023-09-30 11:59] LABS: Hematocrit (blood only) 34.1 % (37.0-47.0)
--- NOTE | 2023-09-30 12:23 | Discharge Summary ---
Date of Service September 30, 2023 Admission HPI Per Admitting Provider 48-year-old female with a history of hypothyroidism, obstructive sleep apnea, mild persistent asthma, ANCA associated vasculitis, eosinophilic esophagitis, CKD stage II, depression, restless leg syndrome, sleep disorder presents after a fall. She reports excessive nausea vomiting and diarrhea with known sick contacts in her home who have similar symptoms. She was having excessive vomiting this morning and passed out on the edge of her bed waking up on the floor. She has burning in her nose and is coughing after issues with vomiting this morning. Fell into her dresser this am, vomit was on the floor Diarrhea started this am, vomiting began last night last thing she ate was last pm 11pm, potato skins and chix wings no fevers, +chills today chronic epigastric abdominal pain described as dull-has had this for a while- ongoing for 8 months, no worse with this issue overnight. 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 Followed by nephrology [facility] Admission Exam Per Admitting Provider CONSTITUTIONAL: WNWD, vitals as above, ill appearing, NAD EYES: normal conjunctivae, no scleral icterus ENT: external ear and nose normal, oropharynx clear, MMM NECK: trachea midline RESPIRATORY: clear to auscultation bilaterally in posterior duenas, wheezing present in anterior duenas bilaterally, no crackles or rales, normal respiratory effort CARDIOVASCULAR: regular rate and rhythm, S1 and 2 heard without murmurs, gallops or rubs, no JVD, no peripheral edema CHEST: inspection of chest was normal GASTROINTESTINAL: soft, nontender, ND, no guarding MUSCULOSKELETAL: strength 5/5 throughout, head is normocephalic and atraumatic SKIN: warm and dry NEUROLOGIC: CN 2-12 grossly intact, no sensory deficit, normal cognition, normal speech, no tremor PSYCHIATRIC: alert cooperative and oriented to person, place and time. Euthymic mood, makes good eye contact, language grossly intact, recent and remote memory grossly intact. Principal Diagnosis + Norovirus, nausea/vomiting LOU, hx of ANCA vasculitis Discharge Exam CONSTITUTIONAL: WN/WD, F in NAD EYES: normal conjunctivae, no scleral icterus ENT: external ear and nose normal, MMM NECK: supple RESPIRATORY: clear to auscultation bilaterally in posterior duenas, no crackles, normal respiratory effort CARDIOVASCULAR: regular rate and rhythm, S1 and 2 heard without murmurs CHEST: inspection of chest is normal GASTROINTESTINAL: soft, nontender, ND, no guarding MUSCULOSKELETAL: head is normocephalic and atraumatic, moves extremities SKIN: warm and dry NEURO/PSYCH: awake alert cooperative, answers appropriately, normal speech, no facial asymmetry, moves extremities Discharge Data Allergies Allergy/AdvReac Type Severity Reaction Status Date / Time tetracycline AdvReac Intermediate STOMACH Verified 01/26/15 10:06 CRAMPS avocado AdvReac Unknown Abdominal Verified 09/29/23 14:23 Pain mushroom AdvReac Unknown ABDOMINAL Verified 02/02/15 06:09 PAIN onion AdvReac Unknown ABDOMINAL Verified 02/02/15 06:09 PAIN sulfamethoxazole AdvReac Unknown renal Verified 09/28/23 11:05 [From Bactrim] dysfunction trimethoprim [From Bactrim] AdvReac Unknown renal Verified 09/28/23 11:05 dysfunction Consultations 09/28/23 10:51 ED Decision to Admit Stat 09/29/23 14:19 Consult Nephrology Routine Ordered Studies 09/28/23 06:47 CT head/brain wo con Stat FINDINGS: No acute intracranial hemorrhage, midline shift or mass effect is present. The ventricular system is unremarkable. The basal cisterns are patent. No extra-axial collections are present. There are no findings to suggest acute dural sinus thrombosis or acute territorial infarct. No significant calvarial abnormalities are present. Visualized portions of the sinuses and mastoid air cells are clear. IMPRESSION: 1. No acute intracranial findings. 2. No calvarial fracture. Hospital Course (1) Norovirus: supportive care as outlined below. (2) Intractable nausea and vomitin/2 norovirus. Symptoms of nausea have resolved, able to tolerate some foods, and overall is feeling better. Diarrhea seems to be slowing down, had loose stools yesterday but none yet today. Received IVF (3) Vasovagal syncope: 2/2 vomiting. No further workup required. (4) Hematuria: h/o ANCA vasculitis in the past, followed by Dr. Crowder. Also CKD Stage II. Mildly elevated creatinine to 1.3 likely resulting from acute illness in setting of chronic disease, stable around 1.3 but is now reporting hematuria that is concerning her. She has also had hematuria in recent months as outpatient. Consulted nephrology and discussed w/ in detail - recommend blood work work-up - which is going to be done faster if done through [facility] - pt to obtain labs today after DC and follow up closely w/ nephrology. ANCA panel includes complement, AMANDA, anti GBM, ANCA Abs -recommend hospital D/C visit w/ Dr Crowder within 10 days of hospital d/c w/ repeat bmp and ACR and uacm to be drawn at that time and ordered by nephro nurse -may ultimately need repeat renal bx or other supportive care but at this time no urgent bx needed (5) Acute kidney injury: h/o ANCA vasculitis in the past, followed by Dr. Crowder. Also CKD Stage II. Mildly elevated creatinine to 1.3 this am likely resulting from acute illness in setting of chronic disease. Received IVF, Cr improved today to 1.2 (6) Major depression: chronic, stable. Cont sertraline per home regimen. (7) Hypothyroidism: chronic, stable. Cont Synthroid per home regimen. Total Time Total Time Spent Total Time Spent (In Minutes): 40 Discharge Plan Discharge Items Patient Disposition: Home - Self-Care Reason For Visit: INTRACTABLE NAUSEA/VOMITING,DEHYDRATION,ACUTE KIDN Discharge Diagnosis: + Norovirus, nausea/vomiting LOU, hx of ANCA vasculitis Condition on Discharge: Fair Activity: Per Instructions section Non-emergency contact: Primary Care Provider, Specialist and Quality Assurance Supervisor Final Call non-emergency contact if: you have any medication questions and your symptoms worsen Follow-up/Referrals: Lowell Christine MD [Primary Care Provider] - (Date & Time 10/05/2023 11:00 AM Provider Lowell Christine MD [facility] ) Diet: Regular Addtl Attending Provider Instructions: Follow up with your primary care physician and faculty member. The appointment with your primary care physician was scheduled for you for 10/05/2022. You will be contacted about your appointment with your faculty member. Please, have your blood work done at [facility] today. Pending Studies at Discharge: No Stand-Alone Forms: [facility], Smoking Cessation Medications and DC Order Prescriptions: Continued sertraline 100 mg tablet 150 mg PO QAM Rx Instructions: Take 150mg by mouth every morning along with Sertraline 25mg for a total of 175mg levothyroxine 75 mcg tablet 75 mcg PO DAILYBB sertraline 25 mg tablet 25 mg PO QAM Rx Instructions: Take 25mg by mouth every morning along with Sertraline 150mg for a total of 175mg lisinopril 2.5 mg tablet 2.5 mg PO DAILY@1700 Rx Instructions: Take 2.5mg by mouth daily at noon fluticasone propion-salmeterol [Advair Diskus] 250-50 mcg/dose Blister With Device 1 inh INHALATION BID Discharge Orders: Discharge Order (Routine); Ordered 09/30/23 Ordered By: Vinayak Gee Admission Data Admit Date/Time: 09/28/23 10:54 Attending Provider: Vinayak Gee Admit Provider: Samia Gonzales Primary Care Provider: Lowell Christine Other Providers: Samia Gonzales; Onelia Roper
--- OUTSIDE RECORDS SUMMARY | 2023-09-30 19:59 | External Medical Summary | Summary of Care ---
Author Name Unknown Organization [facility] Address [address] [place] [address] Phone [phone] Care Team Providers Care Garment Alteration Examiner Name Role Phone Lowell Christine MD Primary Care Provider [phone]- [phone] Reason for Visit * Reason Onset Date Comments Advice 09/29/2023 Encounter Details Date Type Department Care Team (Late st Contact Info) Description 09/29/2023 Telephone Nephrology, [facility] [address] [place] [address] Services, Scheduling [address] [place] [address] Advice Allergies Active Allergy Reactions Criticality Noted Date Comments Avocado 08/04/2012 Stomach cramps Sulfamethoxazole-Trimethopri m 07/06/2019 Really affected renal function last time she took it Mushroom Extract Complex 08/04/2012 Any mushroom: Stomach cramps Onion 08/04/2012 Stomach cramps when onions raw Tetracycline 09/18/2000 Stomach cramps documented as of this encounter (statuses as of 09/29/2023) Medications Medication Sig Dispensed Refills Start Date [...] SolutionIndications:D eviated septum Administer into nostril 1 Julian in the morning AND 1 Julian before bedtime. 30 mL 12 11/19/2021 Active [...] other meds). 90 Tablet 3 09/14/2023 Active documented as of this encounter (statuses as of 09/29/2023) Active Problems Problem Noted Date Diagnosed Date [...] as of this encounter (statuses as of 09/29/2023) Resolved Problems Problem Noted Date Diagnosed Date [...] as of this encounter (statuses as of 09/29/2023) Immunizations Name Administration Dates Next Due COVID-19 mRNA, LNP-s, No Pre serve, 2-Dose Series (Pfizer) 11/03/2020 PPD 06/11/2015,10/08/2011 Pneumococcal Conjugate Vacci ne, 20-valent ([id number]) 06/25/2023 Pneumococcal Polysaccharide PPV23 (Pneumovax) 11/02/2019 Seasonal [...] encounter Miscellaneous Notes * Telephone Encounter - Naya Escoto OSA - 09/29/2023 9:49 AM EST Pt is calling saying she has been admitted to [facility] for bal virus. She said she noticed blood in her urine during the night. She is still in the Er waiting on a bed. She would like Dr. Crowder aware of this. She is upset and worried about what is going on. Thank you [facility] Scheduling Services documented in this encounter Plan of Treatment Upcoming Encounters Date Type Department Care Team (Late st Contact Info) Description 10/13/2023 2:40 PM EST Office Visit Nephrology, [facility] [address] [address] Hussein Crowder MD [address] [place] [address] 12/10/2023 3:40 PM EDT Office Visit [facility] [address] [place] [id number] Lowell Christine MD [address] [place] [address] 02/17/2024 2:40 PM EDT Office Visit Nephrology, [facility] [address] [place] [address] Hussein Crowder MD [address] [place] [address] Scheduled Procedures Name Priority Associated Diagnoses Date/Ti [...] 02/12/2024 02/11/2023, 10/30, 04/05/2020, Additional history exists TSH 09/07/2024 09/07/2023, 01/26, 10/01/2022, Additional history exists Cervical Cancer Screening 02/17/2025 [...] the patient have Health Care Power of Chain Machine Operator? No Care Teams Garment Alteration Examiner Relationship Specialty Start Date End Date Lowell Christine MD [address] [place] [address] PCP - General Family Medicine 09/18/23 documented as of this encounter
--- OUTSIDE RECORDS SUMMARY | 2023-09-30 19:59 | External Medical Summary | Summary of Care ---
Author Name Unknown Organization [facility] Address [address] [place] [address] Phone [phone] Care Team Providers Care Ruby Rails Developer Name Role Phone Lowell Christine MD Primary Care Provider [phone]- [phone] Reason for Visit * Reason Onset Date Comments Advice 09/29/2023 Encounter Details Date Type Department Care Team (Late st Contact Info) Description 09/29/2023 Telephone Nephrology, [facility] [address] [place] [address] Services, Scheduling [address] [place] [address] Advice Allergies Active Allergy Reactions Criticality Noted Date Comments Avocado 08/04/2012 Stomach cramps Sulfamethoxazole-Trimethopri m 07/06/2019 Really affected renal function last time she took it Mushroom Extract Complex 08/04/2012 Any mushroom: Stomach cramps Onion 08/04/2012 Stomach cramps when onions raw Tetracycline 09/18/2000 Stomach cramps documented as of this encounter (statuses as of 09/30/2023) Medications Medication Sig Dispensed Refills Start Date [...] SolutionIndications:D eviated septum Administer into nostril 1 [place] in the morning AND 1 [place] before bedtime. 30 mL 12 11/19/2021 Active [...] as of this encounter (statuses as of 09/30/2023) Active Problems Problem Noted Date Diagnosed Date [...] as of this encounter (statuses as of 09/30/2023) Resolved Problems Problem Noted Date Diagnosed Date [...] as of this encounter (statuses as of 09/30/2023) Immunizations Name Administration Dates Next Due COVID-19 mRNA, LNP-s, No Pre serve, 2-Dose Series (Pfizer) 11/03/2020 PPD 06/11/2015,10/08/2011 Pneumococcal Conjugate Vacci ne, 20-valent ([id number]) 06/25/2023 Pneumococcal Polysaccharide PPV23 (Pneumovax) 11/02/2019 Seasonal [...] Telephone Encounter - Raisa Manjarrez RN - 09/30/2023 9:21 AM EST LMAM regarding call and call back number given. * Telephone Encounter - Naya Escoto OSA - 09/29/2023 9:49 AM EST Pt is calling saying she has been admitted to [facility] for bal virus. She said she noticed [...] 10/13/2023 2:40 PM EST Office Visit Nephrology, [facility] [address] [place] [address] Hussein Crowder MD [address] [facility] [place] [address] 12/10/2023 3:40 PM EDT Office Visit [place] [address] [place] [address] Lowell Christine MD [address] [place] [address] 02/17/2024 2:40 PM EDT Office Visit Nephrology, [facility] [address] [place] [address] Hussein Crowder MD [address] [facility] [place] [address] Scheduled Procedures Name Priority Associated Diagnoses Date/Ti [...] 0804/2018, 05/05/2018, Additional history exists Diabetes Screening 09/07/2026 [...] the patient have Health Care Power of Substation Engineer? No Care Teams Ruby Rails Developer Relationship Specialty Start Date End Date Lowell Christine MD [address] [place] [address] PCP - General Family Medicine 09/18/23 documented as of this encounter
== END 2023-09-30 13:23 | disposition home or self-care (01) ==
LOC: EDINP 05:27 → ED 05:27 → SUATTDRO 10:54 → 2W 09-29 11:41